=== PATIENT | male | born 1960 | race Caucasian/White ===

== ENCOUNTER 2023-05-24 12:13 | Inpatient (IN) ==
[2023-05-24] MEDS ORDERED: ACETAMINOPHEN 1,000 MG/100 ML VIAL IV STA (12:59)
[2023-05-24] MEDS ORDERED: ONDANSETRON INJ 2 MG/ML 2 ML VIAL IV STA (12:59)
[2023-05-24] MEDS ORDERED: SODIUM CHLORIDE 0.9% 500 ML IV SCH (13:00)
--- NOTE | 2023-05-24 13:14 | Emergency Department Note ---
Impression & Plan Acute bacterial prostatitis, Severe sepsis, Elevated lactic acid level, Elevated troponin ED Provider Note Name: PRANAY GARDNER Age: 63 Sex: Male Arrives Via: Walk-In Informant: Patient, daughter ED Provider: Ruben Virk MD Chief Complaint: Illness Impression: As per impression above Medical Decision Makin-year-old relatively healthy male arrives for evaluation of worsening weakness and fevers. Patient had a prostate biopsy about 5 days ago started having fevers a few days ago and has been vomiting over the last day. He is ill on arrival and appears septic. Septic work-up initiated with blood cultures lactic acid followed by IV cefepime for presumed prostatitis. He was given 30 mL/kg IV fluids with improvement in his heart rate and patient much more comfortable. He did receive some IV pain medications as he notes some diffuse body aches. Laboratory work-up is remarkable for an elevated lactic acid, elevated white count, elevated procalcitonin and urinalysis is consistent with infection. He does not have any peritonitis on examination. Patient furthermore does have an elevated troponin. EKG is fortunately unremarkable. I suspect this is type II NSTEMI secondary to severe sepsis. Would hold off on anticoagulation given likely not acute coronary occlusion. I reviewed the case with hospitalist who will evaluate him for further management. Triage/Nursing Notes reviewed by Me External Chart Review by me: I reviewed urology visit as an outpatient from a few days ago and received Rocephin at that time Differential:Prostatitis, prostate abscess, intra-abdominal abscess, appendicitis, sepsis, bacteremia, intra-abdominal infection, tickborne illness, pneumonia, UTI, pyelonephritis, many other pathologies considered Vital Signs: reviewed and remarkable for tachycardic Interventions: Normal saline bolus 2.5 L IV initially followed by 500 mL IV. Cefepime 2 g IV, acetaminophen 1 g IV, Dilaudid IV, Zofran IV Labs:ED labs Reviewed by me and remarkable for elevated white blood cell count, elevated troponin, elevated procalcitonin, elevated troponin Imagin view chest x-ray as per my informal interpretation reveals no pneumonia, infiltrate, enlarged cardiac border or pleural effusion EKG:As per my interpretation. Indication sepsis with elevated troponin. Sinus tachycardia at 105 bpm QTc of 438. There is no ectopy nor ischemia. When compared to EKG of December 16, 2020 there is no significant change Cardiac/Tele Monitoring: Cardiac Monitoring: An Order was placed for continuous cardiac monitoring. The monitor shows a rate of 105 with a sinus tach rhythm. Consults: [facility] patient [facility] for further evaluation. I discussed case with Dr. Catalan of urology to make him aware of case and he will follow along Plan: Disposition:Hospitalization. Condition: Good History of Present Illness: 63-year-old gentleman arrives for evaluation of not feeling well. Patient had a prostate biopsy 5 days ago. Over the last 3 to 4 days rapidly worsening fevers, chills, weakness. He notes body aches. Increasing nausea and vomiting. Unable to keep any meds down for the last 2 days. He did get a Rocephin shot a few days ago in the urologist office as there is concern of prostatitis. Notes he feels like he does not urinate fully but he is also not been drinking anything for the last few days. Denies any abdominal pain but is having some pelvic pressure. Denies any chest pain, shortness of breath, headache, neck pain, syncope or other concerning signs or symptoms. Denies any history of significant infectious issues. Previous surgeries including inguinal hernia repair no intra-abdominal surgeries. Currently prescribed Keflex which she has not been able to take in at least a day. Past Medical History:Hypertension, abnormal prostate biopsy Home Medications:See Below Allergies:Bee and pollen Vitals:Blood Pressure: 147/80, Pulse 111, RR 16, T 37.1C, O2 100% on RA Physical Exam: GENERAL: Patient is unwell/dehydrated appearing and in minimal distress. Flushed RESPIRATORY: No dyspnea. Clear to auscultation and equal bilaterally. CARDIOVASCULAR: tachy.No murmur appreciated. GASTROINTESTINAL: Abdomen soft, non-tender, no peritonitis. BACK: No midline tenderness, no CVA tenderness EXTREMITIES: Normal motion all extremities, no cyanosis, no edema. NEUROLOGIC: Alert and oriented. No focal neurologic deficits appreciated SKIN: No rash, no jaundice, Flushed dry skin PSYCH: Appropriate GCS: 15 ED Course: Multiple repeat evaluations patient throughout the day. Gradually improving and appears stable 3:15pm: Severe sepsis repeat evaluation. I personally evaluated patient multiple times but specifically at 3:15 PM following fluid resuscitation. Patient is significantly improved he is breathing comfortably and vitals are stable. (BP135/70, p 90, R 18, O2 96% RA). Patient is mentating well has a soft nontender abdomen and has good cap refill. Critical Care: I have personally spent 45 minutes of critical care time in the direct management of this patient. Severe sepsis requiring resuscitation secondary to prostatitis. This was a life/limb threatening event. This 45 minutes is in excess of all separately billable procedures. Ruben Virk MD Past Med/Surg History Medical History (Updated 05/24/23 @ 18:33 by Ruben Virk MD) Insomnia Chronic back pain Alcohol use disorder Orchalgia Hypertension Surgical History H/O inguinal hernia repair Hx of tonsillectomy History of lumbar laminectomy S/P hernia repair Family History Father Heart disease Diabetes Hypertension Social History Smoking Status: Former smoker Tobacco Type: Cigarettes Hx Alcohol Use: Yes Preferred Language: Austrian marital status: current occupational status: employed Feels Safe at Home: Yes Allergies Allergies Allergy/AdvReac Type Severity Reaction Status Date / Time bee pollen Allergy Intermediate itchy Unverified 05/24/23 14:29 pollen extracts Allergy Intermediate Hives Unverified 05/24/23 14:29 Home Meds Home Medications Medication Instructions Recorded Confirmed amitriptyline 10 mg tablet 30 mg PO HS 04/07/19 05/24/23 hydrochlorothiazide 25 mg tablet 25 mg PO QAM 04/07/19 05/24/23 gabapentin 300 mg capsule 300 mg PO TID 12/16/20 05/24/23 (Neurontin) multivitamin 1 tab PO QAM 12/16/20 05/24/23 omega-3 fatty acids 1,000 mg 1,000 mg PO Q3D 05/24/23 05/24/23 capsule Previous Rx's Medication Instructions Recorded tadalafil 10 mg tablet 10 mg PO DAILY PRN sexual activity 04/25/23 #30 tabs tamsulosin 0.4 mg capsule 0.4 mg PO DAILY #30 caps 05/20/23 cephalexin 500 mg capsule 500 mg PO BID 7 days #14 caps 05/23/23 sulfamethoxazole 800 1 tab PO BID 5 days #10 tabs 05/23/23 mg-trimethoprim 160 mg tablet (Bactrim DS) Results & Data (ED) Vital Signs Vital Signs - 24 hr 05/24/23 12:13 05/24/23 13:07 05/24/23 13:27 Temperature 37.1 C Temperature Source Temporal Artery Scan Pulse Rate 111 H 103 H Pulse Rate [Bilateral] Respiratory Rate 16 Respiratory Depth Blood Pressure 147/80 H Blood Pressure [Right Arm] Blood Pressure Mean 102 Blood Pressure Mean [Right Arm] Pulse Oximetry 100 100 Oxygen Delivery Method Room Air Sepsis Recent Fever Within 48 Hours No Sepsis New/Unexplained Change in Mental Status N/A Sepsis Action Taken by Nursing No Action Required 05/24/23 13:44 05/24/23 14:00 05/24/23 14:15 Temperature 37.0 C Temperature Source Oral Pulse Rate Pulse Rate [Bilateral] 95 H 100 H 94 H Respiratory Rate 16 18 17 Respiratory Depth Blood Pressure Blood Pressure [Right Arm] 146/84 H 148/77 H 146/87 H Blood Pressure Mean Blood Pressure Mean [Right Arm] 104 100 106 Pulse Oximetry 98 95 95 Oxygen Delivery Method Room Air Room Air Room Air Sepsis Recent Fever Within 48 Hours Sepsis New/Unexplained Change in Mental Status Sepsis Action Taken by Nursing 05/24/23 14:30 05/24/23 14:45 05/24/23 15:00 Temperature Temperature Source Pulse Rate Pulse Rate [Bilateral] 105 H 98 H 100 H Respiratory Rate 22 18 15 Respiratory Depth Normal Normal Blood Pressure Blood Pressure [Right Arm] 167/94 H 173/90 H 178/90 H Blood Pressure Mean Blood Pressure Mean [Right Arm] 118 117 119 Pulse Oximetry 94 94 95 Oxygen Delivery Method Room Air Room Air Room Air Sepsis Recent Fever Within 48 Hours Sepsis New/Unexplained Change in Mental Status Sepsis Action Taken by Nursing 05/24/23 15:15 05/24/23 15:30 05/24/23 15:45 Temperature Temperature Source Pulse Rate Pulse Rate [Bilateral] 100 H 96 H 99 H Respiratory Rate 15 16 Respiratory Depth Normal Blood Pressure Blood Pressure [Right Arm] 152/100 H 156/95 H Blood Pressure Mean Blood Pressure Mean [Right Arm] 117 115 Pulse Oximetry 96 93 Oxygen Delivery Method Room Air Room Air Sepsis Recent Fever Within 48 Hours Sepsis New/Unexplained Change in Mental Status Sepsis Action Taken by Nursing Laboratory Data 05/24/23 13:26 05/24/23 14:44 Lab Results 05/24/23 05/24/23 05/24/23 Range/Units 13:26 14:30 14:44 WBC 14.27 H (4.8-10.8) K/ul RBC 5.01 (4.70-6.10) M/uL Hgb 15.9 (14.0-18.0) g/dl Hct 44.3 (42.0-52.0) % MCV 88.4 (80.0-100.0) fL MCH 31.7 (25.0-34.0) pg MCHC 35.9 (32.0-36.0) g/dL RDW Std Deviation 38.0 (36.4-46.3) fL RDW Coeff of Jagdeep 11.8 (11.5-14.5) % Plt Count 141 (130-400) K/uL MPV 11.8 (9.4-12.4) fL Immature Gran % (Auto) 0.6 % Neut % (Auto) 91.4 % Lymph % (Auto) 2.9 % Butts % (Auto) 4.6 % Eos % (Auto) 0.3 % Baso % (Auto) 0.2 % Neut # (Auto) 13.06 H (1.40-6.50) K/uL Lymph # (Auto) 0.41 L (1.20-3.40) K/uL Butts # (Auto) 0.65 H (0.11-0.59) K/uL Eos # (Auto) 0.04 (0.00-0.50) K/uL Baso # (Auto) 0.03 (0.00-0.20) K/uL Immature Gran # (Auto) 0.08 (0.01-0.20) K/uL Toxic Vacuolation 2+ Polychromasia 1+ Sodium TNP 131 L Potassium TNP 3.2 L Chloride 97 L (98-107) mmol/L Carbon Dioxide 21 (21-32) mmol/L Anion Gap TNP BUN 15 (6-23) mg/dl Creatinine 1.02 (0.6-1.4) mg/dl Est Cr Clr Drug Dosing 83.8 ml/min Est GFR ( Amer) 90.2 ml/min Est GFR (Non-Af Amer) 77.9 ml/min BUN/Creatinine Ratio 14.7 (10-20) Glucose 128 H (70-99(Fasting)) mg/dl Lactate 2.9 H* (0.4-2.0) mmol/L Calcium 8.9 (8.6-10.3) mg/dl Magnesium TNP 1.7 Total Bilirubin 1.2 H (0.2-1.0) mg/dl Direct Bilirubin TNP 0.3 H AST TNP 28 ALT 19 (7-52) U/L Alkaline Phosphatase 77 (34-104) U/L Troponin I High Sens 87.1 H* (0-20) pg/ml Total Protein 7.7 (6.0-8.3) gm/dl Albumin 4.0 (3.4-5.0) gm/dl Procalcitonin Cancelled 11.15 H Urine Color Dark Yellow Urine Appearance Turbid A (Clear) Urine pH 8.0 H (4.5-7.5) Ur Specific [place] 1.021 (1.000-1.030) Urine Protein 2+ H (Negative) Urine Glucose (UA) Negative (Negative) Urine Ketones 1+ H (Negative) Urine Blood 3+ H (Negative) Urine Nitrite Negative (Negative) Urine Bilirubin Negative (Negative) Urine Urobilinogen Negative (Negative) Ur Leukocyte Esterase 3+ H (Negative) Urine WBC (Auto) >30 H (0-5) /hpf Urine RBC (Auto) 10-30 H (0-4) /hpf U Hyaline Cast (Auto) 1-5 (0-5) /lpf U Epithel Cells (Auto) 0-5 (0-5) /lpf Urine Bacteria (Auto) Negative (Negative) Urine Yeast Not Reportable Urine Sperm Present A (None Prsent) 05/24/23 Range/Units 15:45 WBC (4.8-10.8) K/ul RBC (4.70-6.10) M/uL Hgb (14.0-18.0) g/dl Hct (42.0-52.0) % MCV (80.0-100.0) fL MCH (25.0-34.0) pg MCHC (32.0-36.0) g/dL RDW Std Deviation (36.4-46.3) fL RDW Coeff of Jagdeep (11.5-14.5) % Plt Count (130-400) K/uL MPV (9.4-12.4) fL Immature Gran % (Auto) % Neut % (Auto) % Lymph % (Auto) % Butts % (Auto) % Eos % (Auto) % Baso % (Auto) % Neut # (Auto) (1.40-6.50) K/uL Lymph # (Auto) (1.20-3.40) K/uL Butts # (Auto) (0.11-0.59) K/uL Eos # (Auto) (0.00-0.50) K/uL Baso # (Auto) (0.00-0.20) K/uL Immature Gran # (Auto) (0.01-0.20) K/uL Toxic Vacuolation Polychromasia Sodium Potassium Chloride (98-107) mmol/L Carbon Dioxide (21-32) mmol/L Anion Gap BUN (6-23) mg/dl Creatinine (0.6-1.4) mg/dl Est Cr Clr Drug Dosing ml/min Est GFR ( Amer) ml/min Est GFR (Non-Af Amer) ml/min BUN/Creatinine Ratio (10-20) Glucose (70-99(Fasting)) mg/dl Lactate 1.4 (0.4-2.0) mmol/L Calcium (8.6-10.3) mg/dl Magnesium Total Bilirubin (0.2-1.0) mg/dl Direct Bilirubin AST ALT (7-52) U/L Alkaline Phosphatase (34-104) U/L Troponin I High Sens 85.3 H* (0-20) pg/ml Total Protein (6.0-8.3) gm/dl Albumin (3.4-5.0) gm/dl Procalcitonin Urine Color Urine Appearance (Clear) Urine pH (4.5-7.5) Ur Specific [place] (1.000-1.030) Urine Protein (Negative) Urine Glucose (UA) (Negative) Urine Ketones (Negative) Urine Blood (Negative) Urine Nitrite (Negative) Urine Bilirubin (Negative) Urine Urobilinogen (Negative) Ur Leukocyte Esterase (Negative) Urine WBC (Auto) (0-5) /hpf Urine RBC (Auto) (0-4) /hpf U Hyaline Cast (Auto) (0-5) /lpf U Epithel Cells (Auto) (0-5) /lpf Urine Bacteria (Auto) (Negative) Urine Yeast Urine Sperm (None Prsent) Administered Medications Enoxaparin Sodium (Enoxaparin Inj 40 Mg/0.4 Ml Syr) 40 mg SQ Q24H NICKI Stop: 06/23/23 17:59 Last Admin: 05/24/23 18:05 Dose: 40 mg Documented By: JAMAR Potassium Chloride 40 meq/ (Sodium Chloride) 1,020 mls @ 125 mls/hr IV .Q8H10M NICKI Stop: 05/25/23 01:54 EST Last Admin: 05/24/23 18:05 Dose: 125 mls/hr Documented By: JAMAR Tamsulosin HCl (Tamsulosin Hcl 0.4 Mg Cap) 0.4 mg PO DAILY NICKI Stop: 06/23/23 17:59 Last Admin: 05/24/23 17:46 Dose: Not Given Documented By: JAMAR Discontinued Medications Gabapentin (Gabapentin 600 Mg Tab) 1,200 mg PO NOW ONE Stop: 05/24/23 15:37 Last Admin: 05/24/23 17:07 Dose: Not Given Documented By: JAMAR Hydromorphone HCl (Hydromorphone Inj 1 Mg/Ml Syringe) 1 mg IV NOW STA Stop: 05/24/23 15:09 Last Admin: 05/24/23 16:11 Dose: 1 mg Documented By: JAMAR Sodium Chloride (Nss) 500 mls @ 999 mls/hr IV .Q31M NICKI Stop: 05/24/23 13:30 Last Infusion: 05/24/23 15:59 Dose: Infused Documented By: Admin: 05/24/23 13:54 Dose: 999 mls/hr Documented By: JAMAR Sodium Chloride (Nss) 1,000 mls @ 999 mls/hr IV .Q1H1M NICKI Stop: 05/24/23 15:00 Last Infusion: 05/24/23 15:59 Dose: Infused Documented By: Admin: 05/24/23 14:10 Dose: 999 mls/hr Documented By: Infusion: 05/24/23 14:10 Dose: Infused Documented By: Admin: 05/24/23 13:54 Dose: 999 mls/hr Documented By: JAMAR Acetaminophen (Ofirmev) 1,000 mg in 100 mls @ 400 mls/hr IV NOW STA Stop: 05/24/23 13:13 Last Infusion: 05/24/23 14:09 Dose: Infused Documented By: Admin: 05/24/23 13:54 Dose: 400 mls/hr Documented By: JAMAR Cefepime HCl (Maxipime) 2,000 mg in 20 mls @ 5 mls/min IV NOW STA; Protocol Stop: 05/24/23 13:56 Last Admin: 05/24/23 13:59 Dose: 5 mls/min Documented By: JAMAR Sodium Chloride (Nss) 500 mls @ 999 mls/hr IV .Q31M ONE Stop: 05/24/23 14:52 Last Infusion: 05/24/23 16:40 Dose: Infused Documented By: Admin: 05/24/23 15:50 Dose: 999 mls/hr Documented By: JAMAR Promethazine HCl 6.25 mg/ (Sodium Chloride) 50.25 mls @ 201 mls/hr IV NOW STA Stop: 05/24/23 15:42 Last Infusion: 05/24/23 16:40 Dose: Infused Documented By: Admin: 05/24/23 16:12 Dose: 201 mls/hr Documented By: JAMAR Ioversol (Optiray 320 100ml) 93 ml IV ONCE ONE Stop: 05/24/23 16:51 Last Admin: 05/24/23 16:50 Dose: 93 ml Documented By: GONZALEZ Ondansetron HCl (Ondansetron Inj 2 Mg/Ml 2 Ml Vial) 4 mg IV NOW STA Stop: 05/24/23 13:00 Last Admin: 05/24/23 13:53 Dose: 4 mg Documented By: JAMAR Potassium Chloride (Potassium Chloride Crtab 20 Meq Tabcr) 40 meq PO NOW STA Stop: 05/24/23 15:49 Last Admin: 05/24/23 17:08 Dose: Not Given Documented By: JAMAR Imaging Data Radiologist's Impression: Chest X-Ray 05/24/23 12:59 XR chest 1V portable CLINICAL HISTORY: Sepsis TECHNIQUE: Single frontal radiograph of the chest was obtained. Comparison: None available at the time of this dictation. FINDINGS: No lines and tubes are seen. The cardiomediastinal silhouette is normal. The lungs are clear. No evidence of pleural effusion or pneumothorax. IMPRESSION: No acute abnormalities and in particular no radiographic evidence of pneumonia. ACT 112: Negative or not required by law. Electronically signed by: Mike Polo M.D. 05/24/2023 3:48 PM Discharge Plan Visit Data Chief Complaint: Nausea Stated Complaint: EXTREME NAUSEA, REACTION TO MEDS ED Provider: Ruben Virk Discharge Problem: Acute bacterial prostatitis, Severe sepsis, Elevated lactic acid level, Elevated troponin Patient Disposition: Admitted As Inpatient Discharge Instructions Interventions: ED Discharge Assessment Last Done: 05/24/23 17:13
[2023-05-24 13:48] LABS: Hematocrit (blood only) 44.3 % (42.0-52.0); Hemoglobin 15.9 g/dl (14.0-18.0); Mean Corpuscular Hemoglobin 31.7 pg (25.0-34.0); Mean Corpuscular Hgb Conc 35.9 g/dL (32.0-36.0); Mean Corpuscular Volume 88.4 fL (80.0-100.0); Mean Platelet Volume 11.8 fL (9.4-12.4); Platelet Count 141 K/uL (130-400); RDW Coefficient of Variation 11.8 % (11.5-14.5); Red Blood Count 5.01 M/uL (4.70-6.10); White Blood Count 14.27 K/ul (4.8-10.8)
[2023-05-24] MEDS ORDERED: CEFEPIME 2,000 MG/20 ML VIAL IV STA (13:53)
[2023-05-24] MEDS: SODIUM CHLORIDE 0.9% 1,000 ML IV SCH ×2 (13:54→14:10)
[2023-05-24 14:07] LABS: Basophils # (auto) 0.03 K/uL (0.00-0.20); Basophils % (auto) 0.2 %; Eosinophils # (auto) 0.04 K/uL (0.00-0.50); Eosinophils % (auto) 0.3 %; Immature Granulocytes # (auto) 0.08 K/uL (0.01-0.20); Immature Granulocytes % (auto) 0.6 %; Lymphocytes # (auto) 0.41 K/uL (1.20-3.40); Lymphocytes % (auto) 2.9 %; Monocytes # (auto) 0.65 K/uL (0.11-0.59); Monocytes % (auto) 4.6 %; Neutrophils # (auto) 13.06 K/uL (1.40-6.50); Neutrophils % (auto) 91.4 %; Polychromasia 1+; Toxic Vacuolation 2+
[2023-05-24 14:11] LABS: Alanine Aminotransferase 19 U/L (7-52); Alkaline Phosphatase 77 U/L (34-104); BUN Creatinine Ratio 14.7 (10-20); Bilirubin,Total 1.2 mg/dl (0.2-1.0); Blood Urea Nitrogen 15 mg/dl (6-23); Calcium 8.9 mg/dl (8.6-10.3); Carbon Dioxide 21 mmol/L (21-32); Chloride 97 mmol/L (98-107); Creatinine Clr Calc Pharmacy 83.8 ml/min; Est GFR (African American) 90.2 ml/min; Est GFR (Non-African American) 77.9 ml/min; Glucose 128 mg/dl (70-99(Fasting)); Total Protein 7.7 gm/dl (6.0-8.3)
[2023-05-24 14:20] LABS: Troponin I High Sensitivity 87.1 pg/ml (0-20)
[2023-05-24] MEDS ORDERED: SODIUM CHLORIDE 0.9% 500 ML IV ONE (14:22)
--- NOTE | 2023-05-24 15:03 | History & Physical Report ---
Date of Service May 24, 2023 Assessment & Plan (1) Sepsis: (2) Prostatitis: (3) Complicated UTI (urinary tract infection): (4) Hx of prostate biopsy: (5) Chronic back pain: (6) Alcohol use disorder: (7) Insomnia: Plan This is a 63yo M with a PMH of secondary HTN, history of alcohol use disorder, elevated psa s/p prostate biopsy yesterday who presents with nausea and fever x 2 days in setting of recent prostate biopsy and concern for developing prostatitis. Sepsis Prostatitis Complicated UTI Tmax 102 F at home, HR 111, WBC 14k, lactate 2.9 -> 1.4 after IV fluids Received adequate IV fluid resuscitation in ED, continue empiric Cefepime UA abnormal, follow urine and blood cultures CT abd/pelvis ordered given recent biopsy, suprapubic discomfort H/o recent prostate biopsy Elevated PSA in Mar, following with Dr. Worrell, s/p core needle biopsy on 05/20 with path resulted showing prostate adenocarcinoma grade group 2 Routine urology consult Alcohol use disorder Endorses 4+ beers daily, last drink 2 days ago 2/2 N/V Appears hypertensive, flushed, restless in ED - AWSS protocol with gabapentin and PRN IV ativan HTN Holding hctz given hypoNa, hypokalemia and recent GI losses Monitor for improvement on etoh withdrawal protocol, may require additional antihypertensives Hypokalemia K 3.2 initially 2/2 GI losses Replaced. Monitor with daily BMP Chronic back pain H/o laminectomy, on gabapentin - hold home dose while receiving gabapentin withdrawal protocol as above Insomnia Amitriptyline 30mg HS DVT Ppx: SQ lovenox Code status: FULL PCP: Dariela Dispo: Admitted to PCU Patient seen in collaboration with Dr. Rodriguez. Please see addendum. History of Present Illness Chief Complaint: dysuria Primary Care Provider: Jas Lyle MD This is a 63yo M with a PMH of secondary HTN, history of alcohol use disorder, elevated psa s/p prostate biopsy yesterday who presents with nausea and fever x 2 days. Follows with [facility] urology for dysuria, orchialgia and was found to have elevated psa of 31 in Mar and underwent prostate biopsy with Dr. Worrell on 05/20. States he completed abx course as prescribed around time of biopsy and felt fine until 2 days ago when he developed nausea, vomiting and fever. Was seen in urology office on 05/23 and received a shot of Rocephin for concern ? p rostatitis. Was prescribed Keflex and Bactrim by urology but do to persistent N/V has not able to take them. Was vomiting overnight and had a Tmax 102 so presented to ED for further evaluation. Endorsing chills, sweats, nausea and feeling restless. Increased urinary urgency but feels like he cannot fully empty bladder with some resulting pelvic discomfort. No dysuria. No headache, lightheadedness, CP, SOB, abdominal pain, diarrhea or constipation. Reduced PO intake over past 2 days and has not had any alcohol in 2 says. Typically endorses 4 beers/day. Allergies Allergy/AdvReac Type Severity Reaction Status Date / Time bee pollen Allergy Intermediate itchy Unverified 05/24/23 14:29 pollen extracts Allergy Intermediate Hives Unverified 05/24/23 14:29 Home Medications Medication Instructions Recorded Confirmed Type amitriptyline 10 mg tablet 30 mg PO HS 04/07/19 05/24/23 History hydrochlorothiazide 25 mg tablet 25 mg PO QAM 04/07/19 05/24/23 History gabapentin 300 mg capsule 300 mg PO TID 12/16/20 05/24/23 History (Neurontin) multivitamin 1 tab PO QAM 12/16/20 05/24/23 History tadalafil 10 mg tablet 10 mg PO DAILY PRN sexual activity 04/25/23 05/24/23 Rx #30 tabs tamsulosin 0.4 mg capsule 0.4 mg PO DAILY #30 caps 05/20/23 05/24/23 Rx cephalexin 500 mg capsule 500 mg PO BID 7 days #14 caps 05/23/23 05/24/23 Rx sulfamethoxazole 800 1 tab PO BID 5 days #10 tabs 05/23/23 05/24/23 Rx mg-trimethoprim 160 mg tablet (Bactrim DS) omega-3 fatty acids 1,000 mg 1,000 mg PO Q3D 05/24/23 05/24/23 History capsule Past Med/Surg History Medical History (Updated 05/24/23 @ 16:00 by Rosette Chance PA-C) Insomnia Chronic back pain Alcohol use disorder Orchalgia Hypertension Surgical History H/O inguinal hernia repair Hx of tonsillectomy History of lumbar laminectomy S/P hernia repair Family History Father Heart disease Diabetes Hypertension Social History Smoking Status: Former smoker Tobacco Type: Cigarettes Hx Alcohol Use: Yes Preferred Language: Armenian marital status: current occupational status: employed Feels Safe at Home: Yes Review of Systems Review of Systems: At least ten systems reviewed and negative except as noted in the HPI. Physical Exam Physical Exam: General Appearance: WD/WN, vitals as above, NAD, sitting up in bed, in acute distress, restless, flushed Head: normocephalic, atraumatic Eyes: normal inspection, PERRL, conjunctivae normal, anicteric sclerae ENT: external ear and nose normal, oropharynx with dry mucous membranes Neck: normal visual inspection, trachea midline, no thyromegaly Respiratory: normal respiratory effort, lungs clear to auscultation, no wheeze, rales, rhonchi. No accessory muscle use Cardiovascular: tachycardic rate, regular rhythm, no murmur, normal peripheral pulses, no BLE edema. Vessels: no JVD Chest: normal inspection of chest Abdomen/GI: normal bowel sounds, soft, nontender, no hepatosplenomegaly : Suprapubic TTP L>R, no CVA TTP Extremities/Musculoskeletal: no cyanosis or clubbing, extremities motor strength 5/5 Neurologic: PERRL, EOMI, accommodation nl, no face palsy, no dysarthria, CN's II-XI intact bilaterally and moves all extremities Psychiatric: A+Ox3 Skin: no rashes, normal color, warm/dry Results & Data Results & Data Vital Signs (Past 12 Hours) Vital Signs Temp Pulse Pulse Resp BP BP Pulse Ox 05/24/23 14:00 100 H 18 148/77 H 95 05/24/23 13:44 37.0 C 95 H 16 146/84 H 98 05/24/23 13:27 103 H 05/24/23 13:07 100 05/24/23 12:13 37.1 C 111 H 16 147/80 H 100 O2 Del Method 05/24/23 14:00 Room Air 05/24/23 13:44 Room Air 05/24/23 13:27 05/24/23 13:07 Room Air 05/24/23 12:13 Laboratory Results Short CBC 05/24/23 Range/Units 13:26 WBC 14.27 H (4.8-10.8) K/ul Hgb 15.9 (14.0-18.0) g/dl Hct 44.3 (42.0-52.0) % Plt Count 141 (130-400) K/uL BMP 05/24/23 13:26 Sodium TNP Potassium TNP Chloride 97 L Carbon Dioxide 21 BUN 15 Creatinine 1.02 Glucose 128 H Calcium 8.9 Liver Function 05/24/23 Range/Units 13:26 Total Bilirubin 1.2 H (0.2-1.0) mg/dl Direct Bilirubin TNP AST TNP ALT 19 (7-52) U/L Alkaline Phosphatase 77 (34-104) U/L Albumin 4.0 (3.4-5.0) gm/dl Diagnostic Findings Chest X-Ray 05/24/23 12:59 XR chest 1V portable CLINICAL HISTORY: Sepsis TECHNIQUE: Single frontal radiograph of the chest was obtained. Comparison: None available at the time of this dictation. FINDINGS: No lines and tubes are seen. The cardiomediastinal silhouette is normal. The lungs are clear. No evidence of pleural effusion or pneumothorax. IMPRESSION: No acute abnormalities and in particular no radiographic evidence of pneumonia. ACT 112: Negative or not required by law. Electronically signed by: Mike Polo M.D. 05/24/2023 3:48 PM ECG Additional Comments: EKG reviewed: Sinus tachycardia Incomplete right bundle branch block, no significant change from previous Supervising Physician Co-Signing Physician Notes 63-year-old male with PMH of HTN, alcohol use disorder, PSA status post recent prostate biopsy complicated with prostatitis not able to take p.o. antibiotic due to associated nausea and vomiting secondary to infection presented to the ED and found to be in severe sepsis POA secondary to prostatitis and complicated UTI. Patient also drinks 3-4 beers daily, last drink 2 days ago which was only 1 beer. IV cefepime, nausea control, CTAP with IV contrast, urology consult. Follow cultures. JOEL S protocol Continue with home medication for hypertension and chronic back pain. Monitor replete electrolytes. Hyponatremia secondary to poor appetite/nausea and vomiting lately. Expect to improve with improving p.o. intake. Lactic acidosis resolved. IV fluids if not able to take p.o. Demand ischemia likely secondary to acute illness, troponin flat trended around 85, patient with no chest pain, telemetry monitoring. On exam: GENERAL: Alert and oriented x3. NAD, on RA. Appears ill HEENT: No pallor, no icterus. Pupils equal, round and reactive to light. Oral mucosa moist. NECK: No JVD, no neck masses. HEART: S1 and S2 heard. Regular rate and rhythm. Tachycardia. No murmur, no gallop. RESPIRATORY SYSTEM: Normal AP diameter. No accessory muscle use. No wheezing, no crackles. ABDOMEN: Soft, bowel sounds present, nontender, no distention. CENTRAL NERVOUS SYSTEM: No facial droop. Speech is clear. Obeys simple commands. Moves extremities. EXTREMITIES: No edema, no erythema seen. I have seen and examined the patient and have discussed the case with the provider above. I agree with the assessment and plan as stated.
[2023-05-24] MEDS ORDERED: HYDROmorphone INJ 1 MG/ML SYRINGE IV STA (15:08)
[2023-05-24 15:21] LABS: Appearance Urine Turbid (Clear); Bacteria Urine Automated Negative (Negative); Bilirubin Urine Negative (Negative); Blood Urine 3+ (Negative); Color Urine Dark Yellow; Epithelial Cell Urine Auto 0-5 /lpf (0-5); Glucose Urine UA Negative (Negative); Ketones Urine 1+ (Negative); Leukocyte Esterase Urine 3+ (Negative); Nitrite Urine Negative (Negative); Specific Gravity Urine 1.021 (1.000-1.030); Urobilinogen Urine Negative (Negative); WBC Urine Automated >30 /hpf (0-5)
[2023-05-24 15:22] LABS: Protein Urine 2+ (Negative)
[2023-05-24 15:22] LABS: Bilirubin Direct 0.3 mg/dl (0-0.2); Magnesium 1.7 mg/dl (1.7-2.4); Potassium 3.2 mmol/L (3.5-5.1)
[2023-05-24] MEDS ORDERED: PROMETHAZINE HCL 6.25 MG in SODIUM CHLORIDE 0.9% 50 ML IV STA (15:28)
[2023-05-24] MEDS ORDERED: GABAPENTIN 1200MG ALCOHOL WITHDRAWAL LOAD PO STA (15:36)
[2023-05-24] MEDS ORDERED: GABAPENTIN 600 MG TAB PO ONE (15:36)
[2023-05-24] MEDS ORDERED: LORazepam 2 MG/1 ML VIAL IV PRN (15:36)
[2023-05-24] MEDS ORDERED: Ativan IV Alcohol Withdrawal--Active Protocol IV PRN (15:36)
[2023-05-24 15:37] LABS: Sperm Urine Present (None Prsent)
[2023-05-24] MEDS ORDERED: POTASSIUM CHLORIDE CRTAB 20 MEQ TABCR PO STA (15:48)
--- NOTE | 2023-05-24 15:50 | XRay Report ---
XR chest 1V portable CLINICAL HISTORY: Sepsis TECHNIQUE: Single frontal radiograph of the chest was obtained. Comparison: None available at the time of this dictation. FINDINGS: No lines and tubes are seen. The cardiomediastinal silhouette is normal. The lungs are clear. No evid ence of pleural effusion or pneumothorax. IMPRESSION: No acute abnormalities and in particular no radiographic evidence of pneumonia. ACT 112: Negative or not required by law. Electronically signed by: Mike Polo M.D. 05/24/2023 3:48 PM
[2023-05-24] MEDS ORDERED: OPTIRAY 320 100ml IV ONE (16:50)
[2023-05-24] MEDS ORDERED: POLYETHYLENE (MIRALAX) 17 GM PACK PO PRN (17:13)
[2023-05-24] MEDS ORDERED: POTASSIUM CHLORIDE 40 MEQ in SODIUM CHLORIDE 0.9% 1,000 ML IV SCH (17:45)
[2023-05-24] MEDS: TAMSULOSIN HCL 0.4 MG CAP PO SCH (17:46)
[2023-05-24] MEDS: ENOXAPARIN INJ 40 MG/0.4 ML SYR SQ SCH (18:05)
[2023-05-24 18:20] LABS: Influenza A virus by PCR Negative (Neg); Influenza B virus by PCR Negative (Neg); RSV by PCR Negative (Neg); SARS CoV2 RNA(COVID-19) Ceph NEGATIVE (Negative)
--- NOTE | 2023-05-24 19:40 | CT Scan Report ---
CT abd pelvis IV con only CLINICAL HISTORY: sepsis 2/2 prostatitis, recent prostate bx TECHNIQUE: Helical axial images of the abdomen and pelvis were obtained and displayed. Automated dose lowering techniques and/or adjustment according to patient size were utilized for this exam. This e xam was performed with intravenous contrast. CT DOSE: 1100.05 mGy.cm COMPARISON: None available at the time of this dictation. FINDINGS: Lower chest: Bibasilar atelectasis versus scarring is seen. Liver: Unremarkable. No focal lesions are seen. Gallbladder and biliary tree: No calcified gallstones. Normal caliber wall. No intra- or extrahepatic biliary ductal dilation. Pancreas: Unremarkable, no focal lesions. Spleen: Unremarkable. Adrenals: Unremarkable. Kidneys and ureters: Unremarkable. Bladder: Diffuse homogeneous wall thickening is seen. Reproductive organs: Calcifications are noted in the prostate. There is no evidence of prostatic absc ess. Prostate is enlarged measuring 55 mm in diameter. Bowel: The appendix is normal. Lymph nodes Retroperitoneal: Unremarkable. Pelvic: Unremarkable. Mesenteric: Unremarkable. Peritoneum: Normal. Vessels: Unremarkable. Abdominal wall: Left fat containing inguinal hernia. Bones: Minimal degenerative changes are seen. IMPRESSION: Prostatomegaly and calcification is seen with mild edema which may represent prostatitis without evid ence of prosthetic abscess. ACT 112: Negative or not required by law. Electronically signed by: Mike Polo M.D. 05/24/2023 7:38 PM
[2023-05-24] MEDS: AMITRIPTYLINE HCL 10 MG TAB PO SCH (21:51)
[2023-05-24] MEDS: CEFEPIME 2,000 MG in SYRINGE 0 ML IV SCH (21:52)
[2023-05-24] MEDS: GABAPENTIN 600 MG TAB PO SCH (23:10)
[2023-05-25] MEDS: ONDANSETRON INJ 2 MG/ML 2 ML VIAL IV PRN (03:52)
[2023-05-25 04:10] LABS: Hematocrit (blood only) 39.2 % (42.0-52.0); Mean Corpuscular Hgb Conc 35.7 g/dL (32.0-36.0); Mean Corpuscular Volume 89.7 fL (80.0-100.0); Mean Platelet Volume 12.2 fL (9.4-12.4); Platelet Count 102 K/uL (130-400); RDW Coefficient of Variation 12.2 % (11.5-14.5); RDW Standard Deviation 40.2 fL (36.4-46.3); Red Blood Count 4.37 M/uL (4.70-6.10); White Blood Count 9.11 K/ul (4.8-10.8)
[2023-05-25 04:29] LABS: Albumin Globulin Ratio 1.1 (0.9-2); Albumin Level 3.3 gm/dl (3.4-5.0); BUN Creatinine Ratio 16.4 (10-20); Bilirubin,Total 0.8 mg/dl (0.2-1.0); Calcium 7.6 mg/dl (8.6-10.3); Creatinine Clr Calc Pharmacy 117.1 ml/min; Est GFR (African American) 114.4 ml/min; Est GFR (Non-African American) 98.7 ml/min; Globulin 2.9 gm/dl (2.5-4.0); Potassium 3.7 mmol/L (3.5-5.1); Total Protein 6.2 gm/dl (6.0-8.3)
[2023-05-25] MEDS: ACETAMINOPHEN 325 MG TAB PO PRN ×2 (05:32→19:46)
[2023-05-25] MEDS: CEFEPIME 2,000 MG in SYRINGE 0 ML IV SCH ×3 (05:32→21:31)
[2023-05-25] MEDS: GABAPENTIN 600 MG TAB PO SCH ×3 (05:33→19:47)
--- NOTE | 2023-05-25 08:23 | Urology Consultation ---
Date of Consultation May 25, 2023 Assessment & Plan (1) Complicated UTI (urinary tract infection): (2) Severe sepsis: Plan 63-year-old male who is status post prostate needle biopsy on 05/20/2023 was admitted to the hospital with suspected sepsis. No acute urologic intervention necessary Urine cultures growing E. coli. Would not be surprised if blood cultures grow E. coli as well. Continue cefepime and narrow down once cultures are finalized. Recommend total course of 14 days of antibiotics Urology to follow peripherally Did not discuss pathology results with patient as I will leave this to Dr. Worrell to do as an outpatient History of Present Illness Attending Physician: Gill Luke MD History of Present Illness 63-year-old male admitted for suspected sepsis following a prostate needle biopsy. He is status post prostate needle biopsy by Dr. Worrell in clinic on 05/20/2023. He was admitted to the hospital 05/24/2023. He has not had any fevers while admitted. He did have 1 reading of tachycardia with a heart rate of 105. He has been mildly hypertensive. Labs showed initial leukocytosis of 14 which is down trended to 9.1 this morning. Hyponatremic with a sodium of 131. Creatinine 0.73 today. Urinalysis was positive for leukocyte Estrace, WBCs and RBCs. Blood and urine cultures are pending but prelim urine culture from 06/19/2023 is growing out E. coli. A CT scan of the abdomen pelvis was ordered which I independently reviewed which does not show any acute abnormalities. He was started on cefepime. Independently reviewed pathology which did show numerous cores of [place] 3+4 equal 7, 1 core of [place] 4+3 equal 7 and 2 cores of [place] 3+5 = 8 prostate cancer. Allergies Allergy/AdvReac Type Severity Reaction Status Date / Time bee pollen Allergy Intermediate itchy Unverified 05/24/23 14:29 pollen extracts Allergy Intermediate Hives Unverified 05/24/23 14:29 Home Medications Medication Instructions Recorded Confirmed Type amitriptyline 10 mg tablet 30 mg PO HS 04/07/19 05/24/23 History hydrochlorothiazide 25 mg tablet 25 mg PO QAM 04/07/19 05/24/23 History gabapentin 300 mg capsule 300 mg PO TID 12/16/20 05/24/23 History (Neurontin) multivitamin 1 tab PO QAM 12/16/20 05/24/23 History tadalafil 10 mg tablet 10 mg PO DAILY PRN sexual activity 04/25/23 05/24/23 Rx #30 tabs tamsulosin 0.4 mg capsule 0.4 mg PO DAILY #30 caps 05/20/23 05/24/23 Rx cephalexin 500 mg capsule 500 mg PO BID 7 days #14 caps 05/23/23 05/24/23 Rx sulfamethoxazole 800 1 tab PO BID 5 days #10 tabs 05/23/23 05/24/23 Rx mg-trimethoprim 160 mg tablet (Bactrim DS) omega-3 fatty acids 1,000 mg 1,000 mg PO Q3D 05/24/23 05/24/23 History capsule Patient History Medical History (Updated 05/24/23 @ 18:33 by Ruben Virk MD) Insomnia Chronic back pain Alcohol use disorder Orchalgia Hypertension Surgical History H/O inguinal hernia repair Hx of tonsillectomy History of lumbar laminectomy S/P hernia repair Family History Father Heart disease Diabetes Hypertension Social History Smoking Status: Never smoker Tobacco Type: Cigarettes Do You Dip or Chew Tobacco: No; Hx Alcohol Use: No Hx Substance Use: Yes Preferred Language: Japanese Communication Ability: Effective Manager Agency Required: No Beliefs That Will Affect Care: None marital status: Current Living Situation: Spouse current occupational status: employed Other Information That Helps Us Care for You: No Feels Safe at Home: Yes Safety Concerns: Feels Safe At This Time Assistive Devices: None Review of Systems Review of Systems: 14 point review of systems negative outs naa of what is listed above in HPI Physical Exam Physical Exam: General: Alert and oriented, no acute distress HEENT: Normocephalic, mucous membranes moist Pulmonary: Nonlabored respirations Abdomen: Nondistended Extremities: Moves all 4 spontaneously Neuro: No gross deficits Skin: Warm, dry, no rashes noted Results & Data Vital Signs (Past 12 Hours) Vital Signs Temp Pulse Pulse Pulse Resp BP BP 05/25/23 06:34 36.6 C 81 14 160/103 H 05/25/23 04:32 82 20 154/100 H 05/25/23 02:00 149/94 H 05/25/23 02:00 87 16 05/25/23 01:05 EST 90 16 151/93 H 05/25/23 01:01 EST 105 H 16 05/25/23 01:05 EDT 92 H 20 152/93 H 05/25/23 00:00 91 H 12 164/100 H 05/25/23 00:00 91 H 16 164/100 H 05/24/23 23:53 37.5 C 97 H 16 134/80 05/24/23 23:00 90 14 134/81 05/24/23 23:00 85 18 134/81 05/24/23 22:00 88 19 146/100 H Pulse Ox O2 Del Method 05/25/23 06:34 97 Room Air 05/25/23 04:32 98 Room Air 05/25/23 02:00 05/25/23 02:00 96 05/25/23 01:05 EST 96 05/25/23 01:01 EST 05/25/23 01:05 EDT 98 Room Air 05/25/23 00:00 96 05/25/23 00:00 96 Room Air 05/24/23 23:53 97 Room Air 05/24/23 23:00 97 05/24/23 23:00 97 Room Air 05/24/23 22:00 95 Room Air PG Care Time/CCT Total # of Minutes Spent Total Time Spent with Patient: Total time spent is greater than 50% in coordination of care (as documented) at patient's floor/unit and/or counseling patient: Coding Level of Care Code 94984 IN/OBS CONSULT LVL 3,45M Diagnoses Complicated UTI (urinary tract infection) N39.0 Severe sepsis A41.9; R65.20
[2023-05-25] MEDS: MULTIVITAMIN TAB PO SCH (08:35)
[2023-05-25] MEDS: TAMSULOSIN HCL 0.4 MG CAP PO SCH (08:37)
--- NOTE | 2023-05-25 11:49 | Hospitalist Progress Note ---
Date of Service May 25, 2023 Assessment & Plan (1) Sepsis: (2) Prostatitis: (3) Complicated UTI (urinary tract infection): (4) Hx of prostate biopsy: (5) Chronic back pain: (6) Alcohol use disorder: (7) Insomnia: Plan This is a 63yo M with a PMH of secondary HTN, history of alcohol use disorder, elevated psa s/p prostate biopsy yesterday who presents with nausea and fever x 2 days in setting of recent prostate biopsy and concern for developing prostatitis. Sepsis Prostatitis Complicated UTI Tmax 102 F at home, HR 111, WBC 14k, lactate 2.9 -> 1.4 after IV fluids Received adequate IV fluid resuscitation in ED, continue empiric Cefepime Procal elevated Urine Cx from 05/23- growing E coli resistant only to fluoroquinolones UA repeat on 05/24 abnormal, follow up urine Cx from the same that is pending Blood cultures with NGTD CT abd/pelvis ordered given recent biopsy, suprapubic discomfort -noted prostatomegaly and calcification with mild edema, suggestive of prostatitis without evidence of prosthetic abscess. Continue Cefepime, wbc improving. Urology consult-appreciate recs -recommending 14 days of abx H/o recent prostate biopsy Elevated PSA in Mar, following with Dr. Worrell s/p core needle biopsy on 05/20 with path resulted showing prostate adenocarcinoma grade group 2 Urology consult -Per urologist Dr. Catalan, Dr. Worrell (pt's urologist) will be on tomorrow 05/26 and will discuss the biopsy pathology results with him then. Alcohol use disorder Endorses 4+ beers daily, last drink 2 days ago Appears hypertensive, flushed, restless in ED AWSS protocol with gabapentin and PRN IV ativan Continue to monitor HTN Holding hctz given hypoNa, hypokalemia and recent GI losses Monitor for improvement on etoh withdrawal protocol May require additional antihypertensives Currently stable Hyponatremia Sodium 131 on admission Holding home HCTZ Started on gentle fluids as pt not able to eat or tolerate PO at this time Continue to monitor with AM labs Hypokalemia Replete as needed Currently wnl Chronic back pain H/o laminectomy, on gabapentin hold home dose while receiving gabapentin withdrawal protocol as above Insomnia Amitriptyline 30mg HS Stable Diet: HH ordered, pt unable to eat, NSS ordered DVT Ppx: SQ lovenox Code status: FULL PCP: Dariela Dispo: PT/OT orders placed. Admission and Anticipated Discharge Date Admission Date: May 24, 2023 Subjective Pt seen in the AM, states that he feels a "hair better". States still having fevers and chills. Has not been able to eat yet, breakfast tray was untouched. Review of Systems Review of Systems: All systems reviewed & are unremarkable except as noted in Subjective Physical Exam Physical Exam: General: Alert, oriented. No acute distress Skin: No noted rashes or bruises Psych: Appropriate mood and affect Neuro: No gross deficits HEENT: NC/AT CV: RRR, Normal s1, s2. No murmurs appreciated Resp: Breath sounds clear bilaterally, no increased effort of breathing. Abdomen: Soft, nontender, nondistended. Extremities: No edema in lower extremities bilaterally. Results & Data Results & Data Vital Signs (Past 12 Hours) Vital Signs Temp Pulse Pulse Resp BP BP Pulse Ox 05/25/23 11:46 81 05/25/23 10:09 81 05/25/23 06:34 36.6 C 81 14 160/103 H 97 05/25/23 04:32 82 20 154/100 H 98 05/25/23 02:00 149/94 H 05/25/23 02:00 87 16 96 05/25/23 01:05 EST 90 16 151/93 H 96 05/25/23 01:01 EST 105 H 16 05/25/23 01:05 EDT 92 H 20 152/93 H 98 O2 Del Method 05/25/23 11:46 05/25/23 10:09 05/25/23 06:34 Room Air 05/25/23 04:32 Room Air 05/25/23 02:00 05/25/23 02:00 05/25/23 01:05 EST 05/25/23 01:01 EST 05/25/23 01:05 EDT Room Air
[2023-05-25] MEDS: DOCUSATE SODIUM 100 MG CAP PO SCH ×2 (13:23→19:48)
[2023-05-25] MEDS: POLYETHYLENE (MIRALAX) 17 GM PACK PO SCH (13:23)
[2023-05-25] MEDS: SODIUM CHLORIDE 0.9% 1,000 ML IV SCH (15:53)
--- NOTE | 2023-05-25 19:15 | Electrocardiogram Report ---
Test Reason : Blood Pressure : / mmHG Vent. Rate : 105 BPM Atrial Rate : 105 BPM P-R Int : 172 ms QRS Dur : 092 ms QT Int : 332 ms P-R-T Axes : 063 -20 045 degrees QTc Int : 438 ms Sinus tachycardia Incomplete right bundle branch block Borderline ECG When compared with ECG of 16-DEC-2020 14:19, No significant change was found Confirmed by Mal Go ([id number]) on 05/25/2023 7:15:21 PM Referred By: REFERRED SELF Confirmed By:Mal Go
[2023-05-25] MEDS: ENOXAPARIN INJ 40 MG/0.4 ML SYR SQ SCH (19:47)
[2023-05-25] MEDS: AMITRIPTYLINE HCL 10 MG TAB PO SCH (19:48)
[2023-05-26] MEDS: SODIUM CHLORIDE 0.9% 1,000 ML IV SCH ×2 (03:59→16:53)
[2023-05-26 04:39] LABS: Basophils # (auto) 0.03 K/uL (0.00-0.20); Basophils % (auto) 0.4 %; Eosinophils # (auto) 0.17 K/uL (0.00-0.50); Eosinophils % (auto) 2.2 %; Hemoglobin 13.6 g/dl (14.0-18.0); Immature Granulocytes # (auto) 0.08 K/uL (0.01-0.20); Lymphocytes # (auto) 1.08 K/uL (1.20-3.40); Mean Corpuscular Hemoglobin 31.9 pg (25.0-34.0); Mean Corpuscular Hgb Conc 35.8 g/dL (32.0-36.0); Mean Corpuscular Volume 89.2 fL (80.0-100.0); Mean Platelet Volume 11.9 fL (9.4-12.4); Monocytes # (auto) 1.15 K/uL (0.11-0.59); Monocytes % (auto) 14.9 %; Neutrophils # (auto) 5.21 K/uL (1.40-6.50); Neutrophils % (auto) 67.5 %; Platelet Count 117 K/uL (130-400); RDW Coefficient of Variation 12.1 % (11.5-14.5); RDW Standard Deviation 39.8 fL (36.4-46.3); Red Blood Count 4.26 M/uL (4.70-6.10); White Blood Count 7.72 K/ul (4.8-10.8)
[2023-05-26 04:53] LABS: BUN Creatinine Ratio 13.8 (10-20); Calcium 7.9 mg/dl (8.6-10.3); Creatinine Clr Calc Pharmacy 106.8 ml/min; Est GFR (African American) 110.2 ml/min; Est GFR (Non-African American) 95.1 ml/min; Potassium 3.5 mmol/L (3.5-5.1)
[2023-05-26 05:07] LABS: Albumin Globulin Ratio 1.1 (0.9-2); Albumin Level 3.2 gm/dl (3.4-5.0); Bilirubin,Total 0.9 mg/dl (0.2-1.0); Globulin 2.9 gm/dl (2.5-4.0); Magnesium 2.2 mg/dl (1.7-2.4); Phosphorus 1.3 mg/dl (2.5-4.9); Total Protein 6.1 gm/dl (6.0-8.3)
[2023-05-26] MEDS ORDERED: STAT IV/IM STA (05:20)
[2023-05-26] MEDS ORDERED: POTASSIUM PHOS 3 MMOL/1 ML INFUSION IV STA (05:22)
[2023-05-26] MEDS: CEFEPIME 2,000 MG in SYRINGE 0 ML IV SCH (05:32)
[2023-05-26] MEDS: GABAPENTIN 600 MG TAB PO SCH ×2 (05:32→16:53)
[2023-05-26] MEDS ORDERED: POTASSIUM CHLORIDE CRTAB 20 MEQ TABCR PO STA (05:33)
[2023-05-26] MEDS ORDERED: CALCIUM GLUCONATE 10% 1,000 MG in SODIUM CHLOR 0.9% MINI-B 50 ML IV ONE (05:45)
[2023-05-26] MEDS: ACETAMINOPHEN 325 MG TAB PO PRN ×3 (05:56→16:16)
[2023-05-26] MEDS ORDERED: POTASSIUM PHOSPHATE 40 MMOL in SODIUM CHLORIDE 0.9% 1,000 ML IV ONE (06:00)
[2023-05-26] MEDS: MULTIVITAMIN TAB PO SCH (09:10)
[2023-05-26] MEDS: TAMSULOSIN HCL 0.4 MG CAP PO SCH (09:10)
[2023-05-26] MEDS: DOCUSATE SODIUM 100 MG CAP PO SCH ×2 (09:11→20:44)
[2023-05-26] MEDS: POLYETHYLENE (MIRALAX) 17 GM PACK PO SCH (09:11)
[2023-05-26] MEDS: cefTRIAXone SODIUM 2,000 MG in DEXTROSE 5 % MINI-B 50 ML IV SCH (13:13)
--- NOTE | 2023-05-26 14:10 | Nuclear Medicine Report ---
WHOLE BODY BONE SCAN HISTORY: Prostate cancer. RADIOTRACER: 25.7 mCi Tc-99m MDP STUDY/IMAGES: Planar anterior and posterior whole body imaging was performed 3 hours following the i ntravenous administration of radiotracer. COMPARISON: Abdomen and pelvis CT 05/24/2023. FINDINGS: No suspicious areas of radiotracer uptake within the axial or appendicular skeleton to sugg est metastatic disease. Scattered areas of radiotracer uptake seen within the shoulders, sternoclavic ular joints, hips, knees, and feet favor degenerative change. IMPRESSION: No evidence for osseous metastatic disease. ACT 112: Negative or not required by law. Electronically signed by: Bulmaro Russell M.D. 05/26/2023 2:09 PM
[2023-05-26] MEDS ORDERED: HYDROCORTISONE HC 2.5% CRM 30GM TUBE EXT PRN (16:12)
[2023-05-26] MEDS: ONDANSETRON INJ 2 MG/ML 2 ML VIAL IV PRN (16:16)
[2023-05-26] MEDS ORDERED: Nursing to Pharmacy Communication SCH (16:30)
--- NOTE | 2023-05-26 16:53 | Hospitalist Progress Note ---
Date of Service May 26, 2023 Assessment & Plan (1) Sepsis: (2) Prostatitis: (3) Complicated UTI (urinary tract infection): (4) Hx of prostate biopsy: (5) Chronic back pain: (6) Alcohol use disorder: (7) Insomnia: Plan This is a 63yo M with a PMH of secondary HTN, history of alcohol use disorder, elevated psa s/p prostate biopsy yesterday who presents with nausea and fever x 2 days in setting of recent prostate biopsy and concern for developing prostatitis. Sepsis Prostatitis Complicated UTI Tmax 102 F at home, HR 111, WBC 14k, lactate 2.9 -> 1.4 after IV fluids Received adequate IV fluid resuscitation in ED, continue empiric Cefepime Procal elevated Urine Cx from 05/23- growing E coli resistant only to fluoroquinolones UA repeat on 05/24 abnormal, follow up urine Cx from the same that is pending Blood cultures with NGTD-remains negative so far CT abd/pelvis ordered given recent biopsy, suprapubic discomfort -noted prostatomegaly and calcification with mild edema, suggestive of prostatitis without evidence of prosthetic abscess. Continue Cefepime, wbc improving.-Antibiotic has been changed to IV ceftriaxone Urology consult-appreciate recs -recommending 14 days of abx Clinically much better and the pathology result is in No fever and or chills and has minimal dysuria Awaiting urologist to discuss the pathology results with the patient and the family member H/o recent prostate biopsy Elevated PSA in Mar, following with Dr. Worrell s/p core needle biopsy on 05/20 with path resulted showing prostate adenocarcinoma grade group 2 Urology consult -Per urologist Dr. Gm Scott (pt's urologist) will be on tomorrow 05/26 and will discuss the biopsy pathology results with him then. Patient is waiting for the urologist to disclose the pathology results to him and the family member Alcohol use disorder Endorses 4+ beers daily, last drink 2 days ago Appears hypertensive, flushed, restless in ED AWSS protocol with gabapentin and PRN IV ativan Continue to monitor No signs and or symptoms of withdrawal HTN Holding hctz given hypoNa, hypokalemia and recent GI losses Monitor for improvement on etoh withdrawal protocol May require additional antihypertensives Currently stable and remains on the lower side at 119/71 Hyponatremia Sodium 131 on admission Holding home HCTZ Started on gentle fluids as pt not able to eat or tolerate PO at this time Sodium level has been at 133 Hypokalemia Replete as needed Currently wnl-at 3.5 Chronic back pain H/o laminectomy, on gabapentin hold home dose while receiving gabapentin withdrawal protocol as above Insomnia Amitriptyline 30mg HS Stable Diet: HH ordered, pt unable to eat, NSS ordered DVT Ppx: SQ lovenox Code status: FULL PCP: Dariela Dispo: PT/OT orders placed. Admission and Anticipated Discharge Date Admission Date: May 24, 2023 Subjective 05/26/2023 The patient was seen and examined in ICU He is a status post prostate biopsy and was admitted with prostatitis/complicated UTI Has been feeling a little better but he still has dysuria Denies any fever and or chills Review of Systems Review of Systems: All systems reviewed and are unremarkable except as noted below Physical Exam Physical Exam: Lying in bed comfortably Constitutional: well developed, well nourished, + ill appearing and average body habitus Eyes: PERRL, conjunctivae normal, anicteric sclerae ENMT: external ear and nose normal, oropharynx normal Neck: trachea midline, no thyromegaly Respiratory: no respiratory distress Auscultation: lungs clear to auscultation bilaterally Cardiovascular: Rate/Rhythm: regular rate and regular rhythm; not tachycardic Heart Sounds: normal S1 and normal S2; no murmur Extremities: no edema Gastrointestinal (Abdomen): Inspection/Auscultation: normal bowel sounds; abdomen not distended Percussion/Palpation: abdomen soft; abdomen nontender Musculoskeletal: No acute arthritis involving any of the joint Neurologic: normal touch/pain/proprioception and moves all extremities; no focal motor deficits Psychiatric: A+Ox3, euthymic affect Lymphatic: no cervical or axillary lymphadenopathy Results & Data Results & Data Vital Signs (Past 12 Hours) Vital Signs Temp Pulse Pulse Resp BP Pulse Ox O2 Del Method 05/26/23 10:00 36.7 C 74 12 119/71 98 Room Air 05/26/23 08:02 36.9 C 78 14 144/88 H 96 Room Air 05/26/23 07:00 72 Laboratory Results Short CBC 05/26/23 Range/Units 03:45 WBC 7.72 (4.8-10.8) K/ul Hgb 13.6 L (14.0-18.0) g/dl Hct 38.0 L (42.0-52.0) % Plt Count 117 L (130-400) K/uL BMP 05/26/23 03:45 Sodium 133 L Potassium 3.5 Chloride 104 Carbon Dioxide 23 BUN 11 Creatinine 0.80 Glucose 96 Calcium 7.9 L Liver Function 05/26/23 Range/Units 03:45 Total Bilirubin 0.9 (0.2-1.0) mg/dl AST 21 (13-39) U/L ALT 14 (7-52) U/L Alkaline Phosphatase 51 (34-104) U/L Albumin 3.2 L (3.4-5.0) gm/dl Medications Administered Current Inpatient Medications Acetaminophen (Acetaminophen 325 Mg Tab) 650 mg PO Q4H PRN PRN Reason: Pain or Fever Stop: 06/23/23 17:12 Last Admin: 05/26/23 16:16 Dose: 650 mg Amitriptyline HCl (Amitriptyline Hcl 10 Mg Tab) 30 mg PO HS [facility] Stop: 06/23/23 20:59 Last Admin: 05/25/23 19:48 Dose: 30 mg Docusate Sodium (Docusate Sodium 100 Mg Cap) 100 mg PO BID [facility] Stop: 06/24/23 12:59 Last Admin: 05/26/23 09:11 Dose: Not Given Enoxaparin Sodium (Enoxaparin Inj 40 Mg/0.4 Ml Syr) 40 mg SQ Q24H [facility] Stop: 06/23/23 17:59 Last Admin: 05/25/23 19:47 Dose: 40 mg Gabapentin (Gabapentin 600 Mg Tab) 600 mg PO Q24H [facility] Stop: 05/28/23 04:01 Gabapentin (Gabapentin 600 Mg Tab) 600 mg PO Q12H [facility] Stop: 05/27/23 04:01 Last Admin: 05/26/23 16:53 Dose: 600 mg Hydrocortisone (Hydrocortisone Hc 2.5% Crm 30gm Tube) 1 appln EXT BID PRN PRN Reason: Hemorrhoids Stop: 06/25/23 16:11 Sodium Chloride (Nss) 1,000 mls @ 80 mls/hr IV .[id number] [facility] Stop: 06/24/23 15:29 Last Admin: 05/26/23 16:53 Dose: 80 mls/hr Ceftriaxone Sodium 2,000 mg/ (Dextrose) 50 mls @ 100 mls/hr IV Q24H [facility] Stop: 06/05/23 13:59 Last Infusion: 05/26/23 14:16 Dose: Infused Lorazepam (Lorazepam 2 Mg/1 Ml Vial) 1 mg IV UD PRN; Protocol PRN Reason: EtOH Withdrawal AWSS Score 6,7 Stop: 06/23/23 15:35 Multivitamins (Multivitamin Tab) 1 tab PO QAM [facility] Stop: 06/24/23 08:59 Last Admin: 05/26/23 09:10 Dose: 1 tab Ondansetron HCl (Ondansetron Inj 2 Mg/Ml 2 Ml Vial) 4 mg IV Q6H PRN PRN Reason: Nausea Stop: 06/23/23 17:12 Last Admin: 05/26/23 16:16 Dose: 4 mg Polyethylene Glycol (Polyethylene (Miralax) 17 Gm Pack) 17 gm PO DAILY [facility] Stop: 06/24/23 12:59 Last Admin: 05/26/23 09:11 Dose: Not Given Tamsulosin HCl (Tamsulosin Hcl 0.4 Mg Cap) 0.4 mg PO DAILY [facility] Stop: 06/23/23 17:59 Last Admin: 05/26/23 09:10 Dose: 0.4 mg
[2023-05-26] MEDS: ENOXAPARIN INJ 40 MG/0.4 ML SYR SQ SCH (18:39)
[2023-05-26] MEDS: AMITRIPTYLINE HCL 10 MG TAB PO SCH (20:43)
[2023-05-27] MEDS: GABAPENTIN 600 MG TAB PO SCH (03:47)
[2023-05-27] MEDS: SODIUM CHLORIDE 0.9% 1,000 ML IV SCH ×2 (03:51→15:44)
[2023-05-27 04:16] LABS: Basophils # (auto) 0.03 K/uL (0.00-0.20); Basophils % (auto) 0.4 %; Eosinophils # (auto) 0.01 K/uL (0.00-0.50); Eosinophils % (auto) 0.1 %; Hemoglobin 13.5 g/dl (14.0-18.0); Immature Granulocytes # (auto) 0.11 K/uL (0.01-0.20); Immature Granulocytes % (auto) 1.4 %; Lymphocytes # (auto) 1.53 K/uL (1.20-3.40); Lymphocytes % (auto) 19.9 %; Mean Corpuscular Hemoglobin 32.1 pg (25.0-34.0); Mean Corpuscular Hgb Conc 35.5 g/dL (32.0-36.0); Mean Corpuscular Volume 90.3 fL (80.0-100.0); Mean Platelet Volume 11.3 fL (9.4-12.4); Monocytes # (auto) 1.07 K/uL (0.11-0.59); Monocytes % (auto) 13.9 %; Neutrophils # (auto) 4.94 K/uL (1.40-6.50); Neutrophils % (auto) 64.3 %; Platelet Count 144 K/uL (130-400); RDW Coefficient of Variation 12.5 % (11.5-14.5); RDW Standard Deviation 41.2 fL (36.4-46.3); Red Blood Count 4.21 M/uL (4.70-6.10); White Blood Count 7.69 K/ul (4.8-10.8)
[2023-05-27 04:32] LABS: Albumin Globulin Ratio 1.1 (0.9-2); Albumin Level 3.3 gm/dl (3.4-5.0); BUN Creatinine Ratio 13.9 (10-20); Bilirubin,Total 0.9 mg/dl (0.2-1.0); Calcium 7.8 mg/dl (8.6-10.3); Creatinine Clr Calc Pharmacy 108.2 ml/min; Est GFR (African American) 110.8 ml/min; Est GFR (Non-African American) 95.6 ml/min; Globulin 2.9 gm/dl (2.5-4.0); Magnesium 2.1 mg/dl (1.7-2.4); Phosphorus 2.1 mg/dl (2.5-4.9); Potassium 3.6 mmol/L (3.5-5.1); Total Protein 6.2 gm/dl (6.0-8.3)
[2023-05-27] MEDS: DOCUSATE SODIUM 100 MG CAP PO SCH ×2 (07:33→21:16)
[2023-05-27] MEDS: MULTIVITAMIN TAB PO SCH (07:34)
[2023-05-27] MEDS: POLYETHYLENE (MIRALAX) 17 GM PACK PO SCH (07:34)
[2023-05-27] MEDS: TAMSULOSIN HCL 0.4 MG CAP PO SCH (07:34)
[2023-05-27] MEDS ORDERED: POTASSIUM PHOS 3 MMOL/1 ML INFUSION IV STA (08:26)
[2023-05-27] MEDS ORDERED: POTASSIUM PHOSPHATE 24 MMOL in SODIUM CHLORIDE 0.9% 500 ML IV ONE (08:30)
--- NOTE | 2023-05-27 13:14 | Hospitalist Progress Note ---
Date of Service May 27, 2023 Assessment & Plan (1) Sepsis: (2) Prostatitis: (3) Complicated UTI (urinary tract infection): (4) Hx of prostate biopsy: (5) Chronic back pain: (6) Alcohol use disorder: (7) Insomnia: Plan This is a 63yo M with a PMH of secondary HTN, history of alcohol use disorder, elevated psa s/p prostate biopsy yesterday who presents with nausea and fever x 2 days in setting of recent prostate biopsy and concern for developing prostatitis. Sepsis Prostatitis Complicated UTI Tmax 102 F at home, HR 111, WBC 14k, lactate 2.9 -> 1.4 after IV fluids Received adequate IV fluid resuscitation in ED, continue empiric Cefepime Procal elevated Urine Cx from 05/23- growing E coli resistant only to fluoroquinolones UA repeat on 05/24 abnormal, follow up urine Cx from the same that is pending Blood cultures with NGTD-remains negative so far CT abd/pelvis ordered given recent biopsy, suprapubic discomfort -noted prostatomegaly and calcification with mild edema, suggestive of prostatitis without evidence of prosthetic abscess. Continue Cefepime, wbc improving.-Antibiotic has been changed to IV ceftriaxone Urology consult-appreciate recs -recommending 14 days of abx Clinically much better and the pathology result is in No fever and or chills and has minimal dysuria Awaiting urologist to discuss the pathology results with the patient and the family member The patient is aware about the pathology report of prostate biopsy Bone scan has been negative for any metastasis He remains otherwise stable and plan to discharge home tomorrow H/o recent prostate biopsy Elevated PSA in Mar, following with Dr. Worrell s/p core needle biopsy on 05/20 with path resulted showing prostate adenocarcinoma grade group 2 Urology consult -Per urologist Dr. Gm Scott (pt's urologist) will be on tomorrow 05/26 and will discuss the biopsy pathology results with him then. Patient is waiting for the urologist to disclose the pathology results to him and the family member As above Alcohol use disorder Endorses 4+ beers daily, last drink 2 days ago Appears hypertensive, flushed, restless in ED AWSS protocol with gabapentin and PRN IV ativan Continue to monitor No signs and or symptoms of withdrawal HTN Holding hctz given hypoNa, hypokalemia and recent GI losses Monitor for improvement on etoh withdrawal protocol May require additional antihypertensives Currently stable and remains on the lower side at 119/71 Blood pressure remains stable Hyponatremia Sodium 131 on admission Holding home HCTZ Started on gentle fluids as pt not able to eat or tolerate PO at this time Sodium level has been at 134 Hypokalemia Replete as needed Currently wnl-at 3.5 Electrolytes are corrected Chronic back pain H/o laminectomy, on gabapentin hold home dose while receiving gabapentin withdrawal protocol as above Insomnia Amitriptyline 30mg HS Stable Diet: HH ordered, pt unable to eat, NSS ordered DVT Ppx: SQ lovenox Code status: FULL PCP: Dariela Dispo: PT/OT orders placed Appreciate PT input and recommendation. Will be discharged home tomorrow Admission and Anticipated Discharge Date Admission Date: May 24, 2023 Subjective 05/26/2023 The patient was seen and examined in ICU He is a status post prostate biopsy and was admitted with prostatitis/complicated UTI Has been feeling a little better but he still has dysuria Denies any fever and or chills 05/27/2023 The patient was seen and examined in ICU He remains stable but weak and lethargic Minimal symptoms with urination without any fever and or chills Said he is not yet ready to be discharged Review of Systems Review of Systems: All systems reviewed and are unremarkable except as noted below Physical Exam Physical Exam: Lying in bed comfortably Constitutional: well developed, well nourished, + ill appearing and average body habitus Eyes: PERRL, conjunctivae normal, anicteric sclerae ENMT: external ear and nose normal, oropharynx normal Neck: trachea midline, no thyromegaly Respiratory: no respiratory distress Auscultation: lungs clear to auscultation bilaterally Cardiovascular: Rate/Rhythm: regular rate and regular rhythm; not tachycardic Heart Sounds: normal S1 and normal S2; no murmur Extremities: no edema Gastrointestinal (Abdomen): Inspection/Auscultation: normal bowel sounds; abdomen not distended Percussion/Palpation: abdomen soft; abdomen nontender Musculoskeletal: No acute arthritis involving any of the joint Neurologic: normal touch/pain/proprioception and moves all extremities; no focal motor deficits Psychiatric: A+Ox3, euthymic affect Lymphatic: no cervical or axillary lymphadenopathy Results & Data Results & Data Vital Signs (Past 12 Hours) Vital Signs Temp Pulse Pulse Resp BP Pulse Ox O2 Del Method 05/27/23 11:46 80 14 147/84 H 94 Room Air 05/27/23 11:46 70 05/27/23 08:47 36.7 C 87 16 153/84 H 97 Room Air 05/27/23 07:00 70 05/27/23 03:46 36.9 C 71 18 146/95 H 97 Room Air 05/27/23 03:36 70 Laboratory Results Short CBC 05/27/23 Range/Units 03:47 WBC 7.69 (4.8-10.8) K/ul Hgb 13.5 L (14.0-18.0) g/dl Hct 38.0 L (42.0-52.0) % Plt Count 144 (130-400) K/uL BMP 05/27/23 03:47 Sodium 134 L Potassium 3.6 Chloride 105 Carbon Dioxide 22 BUN 11 Creatinine 0.79 Glucose 86 Calcium 7.8 L Liver Function 05/27/23 Range/Units 03:47 Total Bilirubin 0.9 (0.2-1.0) mg/dl AST 42 H (13-39) U/L ALT 27 (7-52) U/L Alkaline Phosphatase 50 (34-104) U/L Albumin 3.3 L (3.4-5.0) gm/dl Medications Administered Current Inpatient Medications Acetaminophen (Acetaminophen 325 Mg Tab) 650 mg PO Q4H PRN PRN Reason: Pain or Fever Stop: 06/23/23 17:12 Last Admin: 05/26/23 16:16 Dose: 650 mg Amitriptyline HCl (Amitriptyline Hcl 10 Mg Tab) 30 mg PO HS [facility] Stop: 06/23/23 20:59 Last Admin: 05/26/23 20:43 Dose: 30 mg Docusate Sodium (Docusate Sodium 100 Mg Cap) 100 mg PO BID [facility] Stop: 06/24/23 12:59 Last Admin: 05/27/23 07:33 Dose: Not Given Enoxaparin Sodium (Enoxaparin Inj 40 Mg/0.4 Ml Syr) 40 mg SQ Q24H [facility] Stop: 06/23/23 17:59 Last Admin: 05/26/23 18:39 Dose: 40 mg Gabapentin (Gabapentin 600 Mg Tab) 600 mg PO Q24H [facility] Stop: 05/28/23 04:01 Hydrocortisone (Hydrocortisone Hc 2.5% Crm 30gm Tube) 1 appln EXT BID PRN PRN Reason: Hemorrhoids Stop: 06/25/23 16:11 Sodium Chloride (Nss) 1,000 mls @ 80 mls/hr IV .[id number] [facility] Stop: 06/24/23 15:29 Last Admin: 05/27/23 03:51 Dose: 80 mls/hr Ceftriaxone Sodium 2,000 mg/ (Dextrose) 50 mls @ 100 mls/hr IV Q24H [facility] Stop: 06/05/23 13:59 Last Infusion: 05/26/23 14:16 Dose: Infused Potassium Phosphate 24 mmol/ (Sodium Chloride) 508 mls @ 88 mls/hr IV NOW ONE Stop: 05/27/23 14:16 Last Admin: 05/27/23 09:15 Dose: 88 mls/hr Lorazepam (Lorazepam 2 Mg/1 Ml Vial) 1 mg IV UD PRN; Protocol PRN Reason: EtOH Withdrawal AWSS Score 6,7 Stop: 06/23/23 15:35 Multivitamins (Multivitamin Tab) 1 tab PO QAM [facility] Stop: 06/24/23 08:59 Last Admin: 05/27/23 07:34 Dose: 1 tab Ondansetron HCl (Ondansetron Inj 2 Mg/Ml 2 Ml Vial) 4 mg IV Q6H PRN PRN Reason: Nausea Stop: 06/23/23 17:12 Last Admin: 05/26/23 16:16 Dose: 4 mg Polyethylene Glycol (Polyethylene (Miralax) 17 Gm Pack) 17 gm PO DAILY [facility] Stop: 06/24/23 12:59 Last Admin: 05/27/23 07:34 Dose: Not Given Tamsulosin HCl (Tamsulosin Hcl 0.4 Mg Cap) 0.4 mg PO DAILY [facility] Stop: 06/23/23 17:59 Last Admin: 05/27/23 07:34 Dose: 0.4 mg
[2023-05-27] MEDS: cefTRIAXone SODIUM 2,000 MG in DEXTROSE 5 % MINI-B 50 ML IV SCH (15:44)
[2023-05-27] MEDS: ACETAMINOPHEN 325 MG TAB PO PRN (15:45)
[2023-05-27] MEDS: hydroCHLOROthiazide 25 MG TAB PO SCH (16:27)
[2023-05-27] MEDS: ENOXAPARIN INJ 40 MG/0.4 ML SYR SQ SCH (17:58)
[2023-05-27] MEDS: AMITRIPTYLINE HCL 10 MG TAB PO SCH (21:03)
[2023-05-27] MEDS ORDERED: ALUMINUM/MAGNESIUM SUSP 30 ML UDC PO STA (21:11)
[2023-05-27] MEDS: ONDANSETRON INJ 2 MG/ML 2 ML VIAL IV PRN (21:32)
[2023-05-28] MEDS: SODIUM CHLORIDE 0.9% 1,000 ML IV SCH (03:51)
[2023-05-28] MEDS ORDERED: GABAPENTIN 600 MG TAB PO SCH (04:00)
[2023-05-28 04:22] LABS: Basophils # (auto) 0.05 K/uL (0.00-0.20); Basophils % (auto) 0.5 %; Hematocrit (blood only) 38.6 % (42.0-52.0); Immature Granulocytes # (auto) 0.22 K/uL (0.01-0.20); Immature Granulocytes % (auto) 2.2 %; Lymphocytes # (auto) 2.31 K/uL (1.20-3.40); Lymphocytes % (auto) 23.4 %; Mean Corpuscular Hemoglobin 31.8 pg (25.0-34.0); Mean Corpuscular Hgb Conc 36.3 g/dL (32.0-36.0); Mean Corpuscular Volume 87.7 fL (80.0-100.0); Monocytes # (auto) 1.24 K/uL (0.11-0.59); Monocytes % (auto) 12.6 %; Neutrophils # (auto) 6.06 K/uL (1.40-6.50); Neutrophils % (auto) 61.3 %; Platelet Count 185 K/uL (130-400); RDW Coefficient of Variation 12.3 % (11.5-14.5); RDW Standard Deviation 39.9 fL (36.4-46.3); White Blood Count 9.88 K/ul (4.8-10.8)
[2023-05-28 04:51] LABS: Albumin Level 3.7 gm/dl (3.4-5.0); Bilirubin,Total 0.8 mg/dl (0.2-1.0); Calcium 8.4 mg/dl (8.6-10.3); Magnesium 2.3 mg/dl (1.7-2.4); Potassium 3.5 mmol/L (3.5-5.1)
[2023-05-28 04:57] LABS: Albumin Globulin Ratio 1.2 (0.9-2); BUN Creatinine Ratio 14.5 (10-20); Creatinine Clr Calc Pharmacy 112.4 ml/min; Est GFR (African American) 112.5 ml/min; Est GFR (Non-African American) 97.1 ml/min; Phosphorus 2.6 mg/dl (2.5-4.9); Total Protein 6.7 gm/dl (6.0-8.3)
[2023-05-28] MEDS: POLYETHYLENE (MIRALAX) 17 GM PACK PO SCH (07:51)
[2023-05-28] MEDS: DOCUSATE SODIUM 100 MG CAP PO SCH (07:51)
[2023-05-28] MEDS: MULTIVITAMIN TAB PO SCH (07:51)
[2023-05-28] MEDS: hydroCHLOROthiazide 25 MG TAB PO SCH (07:52)
[2023-05-28] MEDS: TAMSULOSIN HCL 0.4 MG CAP PO SCH (07:52)
--- NOTE | 2023-05-28 12:02 | Hospitalist Progress Note ---
Date of Service May 28, 2023 Assessment & Plan (1) Sepsis: (2) Prostatitis: (3) Complicated UTI (urinary tract infection): (4) Hx of prostate biopsy: (5) Chronic back pain: (6) Alcohol use disorder: (7) Insomnia: Plan This is a 63yo M with a PMH of secondary HTN, history of alcohol use disorder, elevated psa s/p prostate biopsy yesterday who presents with nausea and fever x 2 days in setting of recent prostate biopsy and concern for developing prostatitis. Sepsis Prostatitis Complicated UTI Tmax 102 F at home, HR 111, WBC 14k, lactate 2.9 -> 1.4 after IV fluids Received adequate IV fluid resuscitation in ED, continue empiric Cefepime Procal elevated Urine Cx from 05/23- growing E coli resistant only to fluoroquinolones UA repeat on 05/24 abnormal, follow up urine Cx from the same that is pending Blood cultures with NGTD-remains negative so far CT abd/pelvis ordered given recent biopsy, suprapubic discomfort -noted prostatomegaly and calcification with mild edema, suggestive of prostatitis without evidence of prosthetic abscess. Continue Cefepime, wbc improving.-Antibiotic has been changed to IV ceftriaxone Urology consult-appreciate recs -recommending 14 days of abx Clinically much better and the pathology result is in No fever and or chills and has minimal dysuria Awaiting urologist to discuss the pathology results with the patient and the family member The patient is aware about the pathology report of prostate biopsy Bone scan has been negative for any metastasis He remains otherwise stable and plan to discharge home tomorrow Will start Keflex and continue for a total of 14 days of antibiotic as per recommendation from the urologist Advised to drink more fluid and will be discharged home this afternoon H/o recent prostate biopsy Elevated PSA in Mar, following with Dr. Worrell s/p core needle biopsy on 05/20 with path resulted showing prostate adenocarcinoma grade group 2 Urology consult -Per urologist Dr. Gm Scott (pt's urologist) will be on tomorrow 05/26 and will discuss the biopsy pathology results with him then. Patient is waiting for the urologist to disclose the pathology results to him and the family member As above Alcohol use disorder Endorses 4+ beers daily, last drink 2 days ago Appears hypertensive, flushed, restless in ED AWSS protocol with gabapentin and PRN IV ativan Continue to monitor No signs and or symptoms of withdrawal LFTs are abnormal likely secondary to use of alcohol-strongly advised to quit drinking HTN Holding hctz given hypoNa, hypokalemia and recent GI losses Monitor for improvement on etoh withdrawal protocol May require additional antihypertensives Currently stable and remains on the lower side at 119/71 Blood pressure remains stable Hyponatremia Sodium 131 on admission Holding home HCTZ Started on gentle fluids as pt not able to eat or tolerate PO at this time Sodium level has been at 135 Hypokalemia Replete as needed Currently wnl-at 3.5 Electrolytes are corrected Chronic back pain H/o laminectomy, on gabapentin hold home dose while receiving gabapentin withdrawal protocol as above We will continue medications as an outpatient Insomnia Amitriptyline 30mg HS Stable Diet: HH ordered, pt unable to eat, NSS ordered DVT Ppx: SQ lovenox Code status: FULL PCP: Dariela Dispo: PT/OT orders placed Appreciate PT input and recommendation. Will be discharged home this afternoon Admission and Anticipated Discharge Date Admission Date: May 24, 2023 Subjective 05/26/2023 The patient was seen and examined in ICU He is a status post prostate biopsy and was admitted with prostatitis/complicated UTI Has been feeling a little better but he still has dysuria Denies any fever and or chills 05/27/2023 The patient was seen and examined in ICU He remains stable but weak and lethargic Minimal symptoms with urination without any fever and or chills Said he is not yet ready to be discharged 05/28/2023 The patient was seen and examined in ICU He has been feeling much better today and denies any dysuria Nausea is controlled with current symptomatic medication Denies any fever and or chills He will be discharged home this afternoon Review of Systems Review of Systems: All systems reviewed and are unremarkable except as noted below Physical Exam 2 Physical Exam: Lying in bed comfortably Constitutional: well developed, well nourished, + ill appearing and average body habitus Eyes: PERRL, conjunctivae normal, anicteric sclerae ENMT: external ear and nose normal, oropharynx normal Neck: trachea midline, no thyromegaly Respiratory: no respiratory distress Auscultation: lungs clear to auscultation bilaterally Cardiovascular: Rate/Rhythm: regular rate and regular rhythm; not tachycardic Heart Sounds: normal S1 and normal S2; no murmur Extremities: no edema Gastrointestinal (Abdomen): Inspection/Auscultation: normal bowel sounds; abdomen not distended Percussion/Palpation: abdomen soft; abdomen nontender Musculoskeletal: No acute arthritis involving any of the joint Neurologic: normal touch/pain/proprioception and moves all extremities; no focal motor deficits Psychiatric: A+Ox3, euthymic affect Lymphatic: no cervical or axillary lymphadenopathy Results & Data Results & Data Vital Signs (Past 12 Hours) Vital Signs Temp Pulse Pulse Resp BP Pulse Ox O2 Del Method 05/28/23 10:58 64 05/28/23 07:41 36.7 C 82 16 161/93 H 98 Room Air 05/28/23 03:53 36.6 C 76 19 157/85 H 97 Room Air Laboratory Results Short CBC 05/28/23 Range/Units 03:41 WBC 9.88 (4.8-10.8) K/ul Hgb 14.0 (14.0-18.0) g/dl Hct 38.6 L (42.0-52.0) % Plt Count 185 (130-400) K/uL BMP 05/28/23 03:41 Sodium 135 L Potassium 3.5 Chloride 103 Carbon Dioxide 25 BUN 11 Creatinine 0.76 Glucose 83 Calcium 8.4 L Liver Function 05/28/23 Range/Units 03:41 Total Bilirubin 0.8 (0.2-1.0) mg/dl AST 156 H (13-39) U/L ALT 114 H (7-52) U/L Alkaline Phosphatase 60 (34-104) U/L Albumin 3.7 (3.4-5.0) gm/dl Medications Administered Current Inpatient Medications Acetaminophen (Acetaminophen 325 Mg Tab) 650 mg PO Q4H PRN PRN Reason: Pain or Fever Stop: 06/23/23 17:12 Last Admin: 05/27/23 15:45 Dose: 650 mg Amitriptyline HCl (Amitriptyline Hcl 10 Mg Tab) 30 mg PO HS [facility] Stop: 06/23/23 20:59 Last Admin: 05/27/23 21:03 Dose: 30 mg Docusate Sodium (Docusate Sodium 100 Mg Cap) 100 mg PO BID [facility] Stop: 06/24/23 12:59 Last Admin: 05/28/23 07:51 Dose: Not Given Enoxaparin Sodium (Enoxaparin Inj 40 Mg/0.4 Ml Syr) 40 mg SQ Q24H [facility] Stop: 06/23/23 17:59 Last Admin: 05/27/23 17:58 Dose: 40 mg Hydrochlorothiazide (Hydrochlorothiazide 25 Mg Tab) 25 mg PO QAM [facility] Stop: 06/26/23 16:14 Last Admin: 05/28/23 07:52 Dose: 25 mg Hydrocortisone (Hydrocortisone Hc 2.5% Crm 30gm Tube) 1 appln EXT BID PRN PRN Reason: Hemorrhoids Stop: 06/25/23 16:11 Sodium Chloride (Nss) 1,000 mls @ 80 mls/hr IV .[id number] [facility] Stop: 06/24/23 15:29 Last Admin: 05/28/23 03:51 Dose: 80 mls/hr Ceftriaxone Sodium 2,000 mg/ (Dextrose) 50 mls @ 100 mls/hr IV Q24H [facility] Stop: 06/05/23 13:59 Last Infusion: 05/27/23 16:26 Dose: Infused Lorazepam (Lorazepam 2 Mg/1 Ml Vial) 1 mg IV UD PRN; Protocol PRN Reason: EtOH Withdrawal AWSS Score 6,7 Stop: 06/23/23 15:35 [facility]ivit[facility] ([facility] Tab) [facility] [place]: 06/24/23 08:59 Last Admin: 05/28/23 07:51 Dose: 1 tab Ondansetron HCl (Ondansetron Inj 2 Mg/Ml 2 Ml Vial) 4 mg IV Q6H PRN PRN Reason: Nausea Stop: 06/23/23 17:12 Last Admin: 05/27/23 21:32 Dose: 4 mg Polyethylene Glycol (Polyethylene (Miralax) 17 Gm Pack) 17 gm PO DAILY [facility] Stop: 06/24/23 12:59 Last Admin: 05/28/23 07:51 Dose: Not Given Tamsulosin HCl (Tamsulosin Hcl 0.4 Mg Cap) 0.4 mg PO DAILY [facility] Stop: 06/23/23 17:59 Last Admin: 05/28/23 07:52 Dose: 0.4 mg
[2023-05-28] MEDS ORDERED: cephALEXin 500 MG CAP PO SCH (13:00)
--- NOTE | 2023-05-29 08:42 | Discharge Summary ---
Date of Service May 29, 2023 Admission HPI Per Admitting Provider This is a 63yo M with a PMH of secondary HTN, history of alcohol use disorder, elevated psa s/p prostate biopsy yesterday who presents with nausea and fever x 2 days. Follows with [facility] [place] for dysuria, orchialgia and was found to have elevated psa of 31 in Mar and underwent prostate biopsy with Dr. Worrell on 05/20. States he completed abx course as prescribed around time of biopsy and felt fine until 2 days ago when he developed nausea, vomiting and fever. Was seen in urology office on 05/23 and received a shot of Rocephin for concern ? prostatitis. Was prescribed Keflex and Bactrim by urology but do to persistent N/V has not able to take them. Was vomiting overnight and had a Tmax 102 so presented to ED for further evaluation. Endorsing chills, sweats, nausea and feeling restless. Increased urinary urgency but feels like he cannot fully empty bladder with some resulting pelvic discomfort. No dysuria. No headache, lightheadedness, CP, SOB, abdominal pain, diarrhea or constipation. Reduced PO intake over past 2 days and has not had any alcohol in 2 says. Typically endorses 4 beers/day. Admission Exam Per Admitting Provider Physical Exam: General Appearance: WD/WN, vitals as above, NAD, sitting up in bed, in acute distress, restless, flushed Head: normocephalic, atraumatic Eyes: normal inspection, PERRL, conjunctivae normal, anicteric sclerae ENT: external ear and nose normal, oropharynx with dry mucous membranes Neck: normal visual inspection, trachea midline, no thyromegaly Respiratory: normal respiratory effort, lungs clear to auscultation, no wheeze, rales, rhonchi. No accessory muscle use Cardiovascular: tachycardic rate, regular rhythm, no murmur, normal peripheral pulses, no BLE edema. Vessels: no JVD Chest: normal inspection of chest Abdomen/GI: normal bowel sounds, soft, nontender, no hepatosplenomegaly : Suprapubic TTP L>R, no CVA TTP Extremities/Musculoskeletal: no cyanosis or clubbing, extremities motor strength 5/5 Neurologic: PERRL, EOMI, accommodation nl, no face palsy, no dysarthria, CN's II-XI intact bilaterally and moves all extremities Psychiatric: A+Ox3 Skin: no rashes, normal color, warm/dry Principal Diagnosis Sepsis secondary to prostatitis and complicated UTI, prostatic adenocarcinoma, elevated liver enzymes likely secondary to alcoholism Discharge Exam Lying in bed comfortably Constitutional well developed, well nourished, + ill appearing and average body habitus Eyes PERRL, conjunctivae normal, anicteric sclerae ENMT external ear and nose normal, oropharynx normal Neck trachea midline, no thyromegaly Respiratory no respiratory distress Auscultation: lungs clear to auscultation bilaterally Cardiovascular Rate/Rhythm: regular rate and regular rhythm; not tachycardic Heart Sounds: normal S1 and normal S2; no murmur Extremities: no edema Gastrointestinal (Abdomen) Inspection/Auscultation: normal bowel sounds; abdomen not distended Percussion/Palpation: abdomen soft; abdomen nontender Neurologic normal touch/pain/proprioception and moves all extremities; no focal motor deficits Psychiatric A+Ox3, euthymic affect Lymphatic no cervical or axillary lymphadenopathy Discharge Data Allergies Allergy/AdvReac Type Severity Reaction Status Date / Time bee pollen Allergy Intermediate itchy Unverified 05/24/23 14:29 pollen extracts Allergy Intermediate Hives Unverified 05/24/23 14:29 Consultations 05/24/23 16:19 Consult Urology Routine Ordered Studies 05/24/23 16:17 CT abd pelvis IV con only Routine Hospital Course (1) Sepsis: (2) Prostatitis: (3) Complicated UTI (urinary tract infection): (4) Hx of prostate biopsy: (5) Chronic back pain: (6) Alcohol use disorder: (7) Insomnia: Plan This is a 63yo M with a PMH of secondary HTN, history of alcohol use disorder, elevated psa s/p prostate biopsy yesterday who presents with nausea and fever x 2 days in setting of recent prostate biopsy and concern for developing prostatitis. Sepsis Prostatitis Complicated UTI Tmax 102 F at home, HR 111, WBC 14k, lactate 2.9 -> 1.4 after IV fluids Received adequate IV fluid resuscitation in ED, continue empiric Cefepime Procal elevated Urine Cx from 05/23- growing E coli resistant only to fluoroquinolones UA repeat on 05/24 abnormal, follow up urine Cx from the same that is pending Blood cultures with NGTD-remains negative so far CT abd/pelvis ordered given recent biopsy, suprapubic discomfort -noted prostatomegaly and calcification with mild edema, suggestive of prostatitis without evidence of prosthetic abscess. Continue Cefepime, wbc improving.-Antibiotic has been changed to IV ceftriaxone Urology consult-appreciate recs -recommending 14 days of abx Clinically much better and the pathology result is in No fever and or chills and has minimal dysuria Awaiting urologist to discuss the pathology results with the patient and the family member The patient is aware about the pathology report of prostate biopsy Bone scan has been negative for any metastasis He remains otherwise stable and plan to discharge home tomorrow Will start Keflex and continue for a total of 14 days of antibiotic as per recommendation from the urologist Advised to drink more fluid and will be discharged home this afternoon H/o recent prostate biopsy Elevated PSA in Mar, following with Dr. Worrell s/p core needle biopsy on 05/20 with path resulted showing prostate adenocarcinoma grade group 2 Urology consult -Per urologist Dr. Catalan, Dr. Worrell (pt's urologist) will be on tomorrow 05/26 and will discuss the biopsy pathology results with him then. Patient is waiting for the urologist to disclose the pathology results to him and the family member As above Alcohol use disorder Endorses 4+ beers daily, last drink 2 days ago Appears hypertensive, flushed, restless in ED AWSS protocol with gabapentin and PRN IV ativan Continue to monitor No signs and or symptoms of withdrawal LFTs are abnormal likely secondary to use of alcohol-strongly advised to quit drinking HTN Holding hctz given hypoNa, hypokalemia and recent GI losses Monitor for improvement on etoh withdrawal protocol May require additional antihypertensives Currently stable and remains on the lower side at 119/71 Blood pressure remains stable Hyponatremia Sodium 131 on admission Holding home HCTZ Started on gentle fluids as pt not able to eat or tolerate PO at this time Sodium level has been at 135 Hypokalemia Replete as needed Currently wnl-at 3.5 Electrolytes are corrected Chronic back pain H/o laminectomy, on gabapentin hold home dose while receiving gabapentin withdrawal protocol as above We will continue medications as an outpatient Insomnia Amitriptyline 30mg HS Stable Diet: HH ordered, pt unable to eat, NSS ordered DVT Ppx: SQ lovenox Code status: FULL PCP: Dariela Dispo: PT/OT orders placed Appreciate PT input and recommendation. Will be discharged home this afternoon Total Time Total Time Spent Total Time Spent (In Minutes): 35 minutes Discharge Plan Discharge Items Patient Disposition: Home - Self-Care Reason For Visit: SEPSIS 2/2 PROSTATITIS Discharge Diagnosis: Sepsis secondary to prostatitis and complicated UTI, prostatic adenocarcinoma, elevated liver enzymes likely secondary to alcoholism Condition on Discharge: Fair Activity: Resume your previous activity Non-emergency contact: Primary Care Provider Call non-emergency contact if: you have any medication questions and your symptoms worsen Follow-up/Referrals: Braden Worrell DO [Physician] - (The doctor office will call with an appointment) Jas Lyle MD [Primary Care Provider] - (Date & Time 06/03/2023 6:00 PM Provider Jas Lyle MD Department [facility] ) Diet: Heart Healthy Addtl Attending Provider Instructions: Please take precautions to avoid falls Try to quit drinking of alcohol Current medications as advised Complete the course of antibiotic Keep appointments with your healthcare providers Pending Studies at Discharge: No Stand-Alone Forms: My [facility] [employer], Smoking Cessation Medications and DC Order Prescriptions: New hydrocortisone [Proctosol HC] 2.5 % Cream With Perineal Applicator 1 applic EXT BID PRN (Reason: hemorrhoids) Qty: 30 0RF cephalexin 500 mg Capsule 500 mg PO TID Qty: 30 0RF ondansetron 8 mg tablet,disintegrating 8 mg PO BID PRN (Reason: nausea and vomiting) 5 Days Qty: 10 0RF Continued tadalafil 10 mg tablet 10 mg PO DAILY PRN (Reason: sexual activity) Qty: 30 0RF Rx Instructions: administer approximately 30min before sexual activity; do not exceed 20 mg in 24 hours. tamsulosin 0.4 mg capsule 0.4 mg PO DAILY Qty: 30 11RF amitriptyline 10 mg tablet 30 mg PO HS hydrochlorothiazide 25 mg tablet 25 mg PO QAM gabapentin [Neurontin] 300 mg capsule 300 mg PO TID multivitamin Tablet 1 tab PO QAM omega-3 fatty acids 1,000 mg Capsule 1,000 mg PO Q3D Discontinued sulfamethoxazole-trimethoprim [Bactrim DS] 800-160 mg tablet 1 tab PO BID 5 Days Qty: 10 0RF Rx Instructions: As of 05/24/23 pt hasn't started medication yet. Originally written for Start Date 05/23/23 - End Date 05/28/23 cephalexin 500 mg capsule 500 mg PO BID 7 Days Qty: 14 0RF Rx Instructions: As of 05/24/23 pt hasn't started medication yet. Originally written for Start Date 05/23/23 - End Date 05/30/23 Discharge Orders: Discharge Order (Routine); Ordered 05/28/23 Ordered By: Molly Vazquez Admission Data Admit Date/Time: 05/24/23 15:48 Attending Provider: Molly Vazquez Admit Provider: Mulugeta Rodriguez Primary Care Provider: Jas Lyle Other Providers: Gerard Catalan Other Interventions: Discharge Summary Assessment (RN) Last Done: 05/28/23 12:32
--- NOTE | 2023-05-31 05:51 | Coding Query ---
CODING QUERY To promote full compliance with coding requirements relating to patient care, provider participation is requested in all cases of supervisor sunglasses uncertainty. Please assist us with the question(s) below: Coding Question(s): Pt admitted with gram-negative Sepsis & complicated UTI. , 4 days post core needle biopsy prostate. 05/28 progress note documented "nausea,fever in the setting of recent prostate biopsy & cancer of prostate.". . Please document, if known or suspected the etiology of the Sepsis/complicated UTI. Thanks for your help! Timothy Read [facility] Physician's Response(s): Complicated UTI is likely secondary to the recent prostate Biopsy Principal Diagnosis: "that condition established after study, to be chiefly responsible for occasioning the admission of the patient to the hospital for care." Co-Existing Principal Diagnosis: "when two or more diagnoses equally meet the criteria for principal diagnosis as determined by the circumstances of admission, diagnostic work up, and/or therapy provided, and the Alphabetic Index, Tabular List, or another coding guideline does not provide sequencing direction, any one of the diagnoses may be sequenced first." "When the physician has documented what appears to be a current diagnosis in the body of the record, but has not included the diagnosis in the final diagnostic statement, the physician should be asked whether the diagnosis should be added." (Source Coding Clinic 2 QTR90. p3-4) DOMINGUEZ
== END 2023-05-28 14:38 | disposition home or self-care (01) | DRG 862 ==
LOC: ED 12:13 → EDINP 15:48 → SUATTDRO 15:48 → 1E 17:13

== ENCOUNTER 2023-07-24 06:44 | Observation (INO) ==
--- NOTE | 2023-07-18 10:15 | Anesthesiology Consultation ---
Date of Service July 18, 2023 Assessment & Plan Chart Review Chart Review: Acceptable Risk for Surgery and Patient NOT seen in Pre Admission Testing Consults Requested none History Surgery Operation Date: 07/24/23 08:15 Proposed Procedures p Robotic assisted Radical Retropubic Prostatectomy, Possible Open, Possible Pelvic Lymph Node Dissection - Braden Worrell DO Height/Weight Height: 6 ft 1 in Weight: 88.451 kg Allergies Allergy/AdvReac Type Severity Reaction Status Date / Time bee pollen Allergy Intermediate itchy Unverified 07/15/23 09:54 pollen extracts Allergy Intermediate Hives Unverified 07/15/23 09:54 Medications Home Medications Medication Instructions Recorded Confirmed Last Taken amitriptyline 10 mg tablet 30 mg PO HS 04/07/19 07/15/23 05/21/23 hydrochlorothiazide 25 mg tablet 25 mg PO QAM 04/07/19 07/15/23 05/21/23 gabapentin 300 mg capsule 300 mg PO TID 12/16/20 07/15/23 05/21/23 (Neurontin) multivitamin 1 tab PO QAM 12/16/20 07/15/23 05/21/23 tadalafil 10 mg tablet 10 mg PO DAILY PRN sexual activity 04/25/23 07/15/23 Unknown #30 tabs omega-3 fatty acids 1,000 mg 1,000 mg PO Q3D 05/24/23 07/15/23 Unknown capsule hydrocortisone 2.5 % topical cream 1 applic EXT BID PRN hemorrhoids 05/28/23 07/15/23 Unknown with perineal applicator #30 grams (Proctosol HC) docusate sodium 100 mg capsule 100 mg PO BID #60 caps 07/15/23 07/15/23 Unknown (Colace) tamsulosin 0.4 mg capsule 0.4 mg PO QAM 07/15/23 07/15/23 Unknown Past Medical History Medical History History of degenerative disc disease Diverticulosis Constipation History of recent hospitalization 05/2023 [facility] - sepsis 2/2 prostatitis Prostate cancer dx'd 05/2023. HLD (hyperlipidemia) Insomnia Chronic back pain Orchalgia Hypertension Past Family History Family History Father Diabetes Heart disease Hypertension Other No family history of adverse response to anesthesia Past Surgical History Surgical History History of colonoscopy History of prostate biopsy H/O inguinal hernia repair Hx of tonsillectomy History of lumbar laminectomy Social History Smoking Status: Former smoker Do You Dip or Chew Tobacco: No Smoking End Date: 24 years ago Hx Alcohol Use: Yes Alcohol type: beer alcohol intake frequency: 0-2 drinks per day Alcohol Intake Frequency Comment: 2 beers per day Hx Substance Use: Yes substance use type: marijuana Last Used Substance: Days (ago) Lab Results Anesthesia Preop Results Results Anesthesia Widget: WBC 9.88 K/ul (4.8-10.8) 05/28/23 Hgb 14.0 g/dl (14.0-18.0) 05/28/23 Hct 38.6 % (42.0-52.0) L 05/28/23 Plt 185 K/uL (130-400) 05/28/23 Na 135 mmol/L (136-145) L 05/28/23 K 3.5 mmol/L (3.5-5.1) 05/28/23 Cl 103 mmol/L (98-107) 05/28/23 CO2 25 mmol/L (21-32) 05/28/23 BUN 11 mg/dl (6-23) 05/28/23 Creat 0.76 mg/dl (0.6-1.4) 05/28/23 Glucose Level 83 mg/dl (70-99(Fasting)) 05/28/23 Testing Electrocardiogram Date: 05/24/23 Sinus tachycardia, rate 105 bpm Incomplete right bundle branch block Borderline ECG When compared with ECG of 16-DEC-2020 14:19, No significant change was found Confirmed by Mal Go ([id number]) on 05/25/2023 7:15:21 PM Chest X-Ray Date: 05/24/23 IMPRESSION: No acute abnormalities and in particular no radiographic evidence of pneumonia.
[~2023-07-24 06:44] MED LIST: HEPARIN SOD 5,000 UNIT/0.5 ML VIAL SC SCH; LR 15ML/HR IV SCH; ceFAZolin 2000MG 2,000 MG/15 ML SYR IV SCH
--- NOTE | 2023-07-24 07:01 | History & Physical Bridge Note ---
Date of Service July 24, 2023 History & Physical Bridge Note I have examined the patient, reviewed the History & Physical and in the interval since the performance of the History & Physical I have noted the following changes of clinical significance: no changes noted
[2023-07-24] MEDS ORDERED: PROPOFOL IV EMULSION 10 MG/ML 20 ML VIAL IV ONE (07:18)
[2023-07-24] MEDS ORDERED: LIDOCAINE 2% 2 ML VIAL/AMP(20MG/ML) INFIL ONE (07:18)
[2023-07-24] MEDS ORDERED: ROCURONIUM BROMIDE 10 MG/ML 5 ML VIAL IV ONE ×2 (07:18→10:57)
[2023-07-24] MEDS ORDERED: ONDANSETRON INJ 2 MG/ML 2 ML VIAL ONE ×2 (07:18→11:53)
[2023-07-24] MEDS ORDERED: DEXAMETHASONE SOD INJ 4 MG/ML VIAL ONE (07:18)
[2023-07-24] MEDS ORDERED: fentaNYL citrate PF 100 MCG/2 ML VIAL ONE ×2 (07:19→09:06)
[2023-07-24] MEDS ORDERED: MIDAZOLAM HCL 1 MG/ML 2ML VIAL ONE (07:19)
[2023-07-24] MEDS ORDERED: SUGAMMADEX SODIUM 200 MG/2 ML VIAL IV ONE (07:23)
[2023-07-24] MEDS ORDERED: BUPIVACAINE 0.5 % 5 MG/1 ML MPF 30ML VIAL ONE (07:59)
[2023-07-24] MEDS ORDERED: fentaNYL citrate PF 100 MCG/2 ML VIAL IV PRN (08:09)
[2023-07-24] MEDS ORDERED: ONDANSETRON INJ 2 MG/ML 2 ML VIAL IV PRN (08:09)
[2023-07-24] MEDS ORDERED: PROMETHAZINE HCL 6.25 MG in SODIUM CHLORIDE 0.9% 50 ML IV PRN (08:09)
[2023-07-24] MEDS ORDERED: ATROPINE SULFATE 0.1 MG/ML 10ML SYR IV PRN (08:09)
[2023-07-24] MEDS ORDERED: ePHEDrine sulfate 50 MG/ML AMP IV PRN (08:09)
[2023-07-24] MEDS ORDERED: KETAMINE HCL 10MG/ML SYR ONE (08:40)
[2023-07-24] MEDS ORDERED: ACETAMINOPHEN 1000 MG/100 ML IV IV ONE (08:40)
[2023-07-24] MEDS ORDERED: HYDROmorphone INJ 2 MG/ML SYR/VIAL ONE (09:26)
[2023-07-24] MEDS ORDERED: FLOSEAL HEMOSTATIC MATRIX 10ML TOP ONE (09:28)
[2023-07-24] MEDS ORDERED: SURGICEL ABSORB HEMOSTAT 2IN X 14IN TOP ONE (09:29)
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
--- NOTE | 2023-07-24 12:26 | Operative Report ---
PG Post Operative Report Pre & Post Diagnosis Operation Date: 07/24/23 08:15 Pre-Op Diagnosis: Prostate Cancer Post-Op Diagnosis: Prostate Cancer I identified the patient and participated in the time-out.: Yes Procedure Operation Date: 07/24/23 08:15 Actual Procedures p Robotic Assisted Laparoscopic Radical Retropubic Prostatectomy, with bilateral Pelvic Lymph Node Dissection extensive lysis of adhesions - Braden Worrell, Surgeon Braden Worrell, II, DO Printed Forms Proofreader Ankit WEST Estimated Blood Loss 50 Findings Consistent with Post-Op Diagnosis Significant adhesions of the ascending colon along the pelvic wall and the right lateral wall. Extensive adhesions of the sigmoid colon in the deep pelvis and left pelvic side wall Accessory arteries/vein in the obturator canal. Significant edematous changes in the posterior dissection Specimens Prostate and Seminal Vesicle Left Pelvic Lymph Nodes Right Pelvic Lymph Nodes. Drains 18 Fr Silicon Clay catheter. Anesthesia Type General Complications none Disposition Disposition: Recovery Room Indications Patient with Prostate Cancer. Risk and benefits were discussed at length. Patient elected to undergo robotic assisted laparoscopic Radical Prostatectomy. Description of Procedure The patient was brought to the operative suite and placed under general endotracheal intubation anesthesia in the supine position. The patient was transferred to the dorsal lithotomy position. At this point, the patient prepped and draped in the usual sterile fashion and a timeout was completed. Preoperative antibiotics of Ancef 2 grams had been given. LUIS FELIPE's and SCD's were placed on the patient's lower extremities. A catheter was placed using sterile technique. With the time out completed the patient was placed into Trendelenburg and the skin at the umbilicus was anesthetized. A small incision was made superior to the umbilicus. A Varess Needle was placed and confirmed to be in the abdominal cavity. Water drop test passed. The Abdominal cavity was insufflated to 15 mmHG. The camera port was then placed. A laparoscopic camera was placed into the port and the abdominal cavity inspected. No concerning features were noted. Numerous adhesions were noted off the right lateral and right pelvic wall coming from the ascending colon. The appendix was able to be visualized also adhered somewhat to the wall. Blunt dissection was utilized to free adhesions along the right lateral wall. These were freed without major issue or concern. At this point, the skin was marked for port placement and 8mm working ports were placed. The skin was anesthetized down to fascia and an approx 1cm incision was made to place the 3 x 8mm ports. A 12mm and 5 mm fast food assistant restaurant manager ports were also placed in similar fashion under direct visualization. The patient was transferred into steep Trendelenburg position and the legs lowered. The robot was positioned and docked. The camera was placed and all trocars were positioned under direct visualization. Leona WEST was integral in port placement, camera utilization, and docking procedure. She remained in sterile attire and then proceeded to assist the remainder of the case. At this point, I transitioned to the robotic console. At this point, the sigmoid colon was mobilized superiorly and the pelvis assessed. Once again significant adhesions were freed to allow mobilization. Blunt and sharp dissection was utilized in order to free the sigmoid colon from the pelvic wall. Extensive adhesions were lysed in the pelvis. Approx 30 minutes necessary for blunt and sharp dissection of the adhesions. A small area of tearing occurred with the blunt dissection on a portion of the sigmoid colon. The tissue appeared to be adhesion but had mild bleeding. No obvious mucosal injury. A 3-0 silk suture was used to oversew the area with a figure of eight stitch. The peritoneum in the midline was opened between rectum and bladder and the vas deferens and seminal vesicles exposed. These were dissected with blunt technique. Significant adhesion and edematous changes were noted on the posterior dissection especially around the vas deferens, the seminal vesicles, and further posterior along the posterior portion of the prostate. The vas was clipped and cut and mobilized. Cautery was used to assist dissection avoiding the tissue posteriorly near the rectum. The tissues lateral to the seminal vesicles were clipped with a hemolock and all bleeding controlled. This was taken as inferior as possible from this position. The medial umbilical ligaments were then identified and the peritoneum directly lateral on the right followed by the left was opened. The tissues were bluntly dissected to free the bladder's lateral attachments. This was taken down to the pubic bone and exposed the endopelvic fascia bilaterally. The medial ligaments were cut and the bladder dropped. The tissues was dissected anterior to the prostate. The endopelvic fascia on each side was then opened and the lateral edges of the prostate dissected. The Dorsal venous complex of the prostate was dissected and assessed. A 2-0 PDS suture was used to ligate the vessels. A suspension stitch was used and clipped. Electrocautery was used to cut the anterior attachments, the puboprostatic ligaments, and venous tissues. The right and left pelvic lymph tissue was identified in relation to the iliac vessels. Distal dissection was taken to the Node of Lulú. Inferiorly the obtorator vessels and nerve were identified. Lymphatic tissue within the surround fat tissue was dissected. This packet of tissues were sent for pathologic analysis and lymph node assessment. This was done for each separate side. Hemostatic agent was placed on the exposed vessels. Dissection was somewhat limited bilaterally due to accessory vessels going into the obturator canal region off of the inguinal region. These vessels were found to be large and had to be carefully dissected around. There were also edematous changes most notably on the right side. The clay was manipulated to better visual the bladder neck and dissection was taken using electrocautery. The bladder neck was opened and dissected from the prostate. The UO were identified and dissection taken in a direction to avoid each side. The vas stump and seminal vesicles were exposed and used to assist in traction to dissect. Additional dissection was necessary in order to clear some of the additional adhesions and attachments on the posterior edge. The prostatic pedicles were better exposed. The posterior prostate was dissected. An attempt was made to limit cautery and utilize cold dissection of the lateral posterior prostate to attempt preservation of the neurovascular bundle bilaterally. Hemolock clips were utilized to clip the prostatic pedicle bilaterally. The dissection was taken to the apex of the prostate. The entire posterior dissection was quite edematous. The neurovascular bundles laterally were able to be preserved however there was some limitation to the ability to preserve large portions of tissue on the right side. No obvious tumor invasion however significant adherence of the tissue to the fascial layers as well as to the prostatic capsule. The anterior prostate was released and the urethra exposed. Cold cutting was used to open the anterior portion and expose the catheter. This was removed and the urethra incised. The prostate was further freed and grasped and removed from the field. The entire dissection bed was inspected.Hemostatic agent was placed in the region. No areas of injury or bleeding was noted. Care was taken to examine the perirectal tissues. A probe was placed and no injuries or other issues were observed. A 2-0 Vicryl suture was then used to reapproximate the base of the bladder and the pelvic tissue. The bladder neck and urethra were then approximated with a running barbed suture starting at the 5 o'clock position and moving to the 12 o'clock on each side. This was tied at the anterior portion. A leak test was completed without any evidence of issues. Additional hemostatic agents were then placed in the base of the dissection bed as well as on the lateral edges. No major bleeding was noted. The entire dissection space was inspected one final time. No bleeding or injuries or areas of concern were noted. No tumor or other concerning features were noted. At this point, the robot was undocked and moved away from the patient. The patient was taken out of Trendelenberg. The port sites were all assessed laparoscopically. The endoscopic bag was moved into the midline port. The 10mm port site was closed with the Henrry Benavides device. The other ports were assessed and no issues observed. The umbilical incision was opened further exposing fascia which was then opened in order to removed the prostate in the bag. The prostate was removed. A running 1-0 PDS suture was used to close fascia. The skin at each site was closed with a stapling device. The area was cleaned and bandages placed on each incision. The patient was cleaned and bandaged, aroused from anesthesia, and transferred to the pacu in stable condition having tolerated the procedure well with no complications. I was present and participated in all aspects of the procedure. Ankit WEST was critical in the portions as mentioned above. Will plan to observe postoperatively and monitor. Clay to be remain in place until followup. Will plan to remove catheter in approximately 10 to 14 days in office and discuss pathology I attest to the content of the Intraoperative Record and any orders documented therein. Any exceptions are noted below.
[2023-07-24 13:21] LABS: Hematocrit (blood only) 39.4 % (42.0-52.0); Hemoglobin 13.5 g/dl (14.0-18.0); Mean Corpuscular Hemoglobin 31.5 pg (25.0-34.0); Mean Corpuscular Hgb Conc 34.3 g/dL (32.0-36.0); Mean Corpuscular Volume 92.1 fL (80.0-100.0); Mean Platelet Volume 10.7 fL (9.4-12.4); Platelet Count 230 K/uL (130-400); RDW Coefficient of Variation 12.5 % (11.5-14.5); RDW Standard Deviation 42.1 fL (36.4-46.3); Red Blood Count 4.28 M/uL (4.70-6.10); White Blood Count 22.18 K/ul (4.8-10.8)
[2023-07-24 13:28] LABS: BUN Creatinine Ratio 12.3 (10-20); Calcium 8.3 mg/dl (8.6-10.3); Est GFR (African American) 72.7 ml/min; Est GFR (Non-African American) 62.7 ml/min; Potassium 4.6 mmol/L (3.5-5.1)
[2023-07-24 13:57] LABS: Basophils # (auto) 0.07 K/uL (0.00-0.20); Basophils % (auto) 0.3 %; Immature Granulocytes # (auto) 0.23 K/uL (0.01-0.20); Lymphocytes # (auto) 1.54 K/uL (1.20-3.40); Lymphocytes % (auto) 6.9 %; Monocytes # (auto) 0.26 K/uL (0.11-0.59); Monocytes % (auto) 1.2 %; Neutrophils # (auto) 20.08 K/uL (1.40-6.50); Neutrophils % (auto) 90.6 %
[2023-07-24] MEDS ORDERED: oxyCODONE HCL IR 5 MG TAB (IMMEDIATE RELEASE) PO PRN (14:24)
[2023-07-24] MEDS ORDERED: MoRPHine SULFATE 4 MG/ML 1 ML CARP\\VIAL IV PRN (14:24)
[2023-07-24] MEDS: LACTATED RINGER'S 1,000 ML IV SCH ×2 (14:31→23:12)
--- NOTE | 2023-07-24 14:36 | Anesthesiology Progress Note ---
Date of Service July 24, 2023 Anesthesia Post Procedure Vital Signs Vital Signs: Temp Pulse Pulse Resp BP BP Pulse Ox 07/24/23 14:25 36.5 C 111 H 16 121/63 95 07/24/23 14:00 105 H 12 119/77 99 07/24/23 13:50 101 H 12 136/76 96 07/24/23 13:40 36.4 C L 103 H 13 145/81 H 96 07/24/23 13:30 100 H 12 135/87 98 07/24/23 13:20 101 H 12 123/79 98 07/24/23 13:10 98 H 12 138/75 97 07/24/23 13:00 100 H 12 101/78 97 07/24/23 12:50 102 H 12 126/86 97 07/24/23 12:40 96 H 10 L 148/91 H 99 07/24/23 12:30 36.2 C L 99 H 8 L 139/79 98 07/24/23 07:11 36.5 C 99 H 18 141/86 H 97 O2 Del Method O2 Flow Rate 07/24/23 14:25 Room Air 07/24/23 14:00 Nasal Cannula 2 07/24/23 13:50 Nasal Cannula 2 07/24/23 13:40 Nasal Cannula 2 07/24/23 13:30 Nasal Cannula 2 07/24/23 13:20 Nasal Cannula 2 07/24/23 13:10 Oxymask 6 07/24/23 13:00 Oxymask 6 07/24/23 12:50 Oxymask 6 07/24/23 12:40 Oxymask 6 07/24/23 12:30 Oxymask 8 07/24/23 07:11 Room Air Transfer of Care Handoff Completed per policy Notes Mental Status: alert / awake / arousable Patient Amnestic to Procedure: Yes Nausea / Vomiting: adequately controlled Pain: adequately controlled Airway Patency, RR, SpO2: stable & adequate BP & HR: stable & adequate Hydration State: stable & adequate Anesthetic Complications: no major complications apparent
[2023-07-24] MEDS: ACETAMINOPHEN 325 MG TAB PO SCH ×2 (16:35→21:33)
[2023-07-24] MEDS: ceFAZolin 2000MG 2,000 MG/15 ML SYR IV SCH ×2 (16:36→23:12)
[2023-07-24] MEDS: ONDANSETRON INJ 2 MG/ML 2 ML VIAL IV PRN (17:29)
[2023-07-24] MEDS: oxyCODONE HCL IR 5 MG TAB (IMMEDIATE RELEASE) PO PRN (17:29)
[2023-07-24] MEDS ORDERED: ONDANSETRON INJ 2 MG/ML 2 ML VIAL IV STA (20:45)
[2023-07-24] MEDS: MoRPHine SULFATE 2 MG/ML CARP IV PRN (20:53)
[2023-07-24] MEDS: HEPARIN SOD 5,000 UNIT/0.5 ML VIAL SQ SCH (21:33)
[2023-07-24] MEDS: AMITRIPTYLINE HCL 10 MG TAB PO SCH (21:34)
[2023-07-24] MEDS: GABAPENTIN 300 MG CAP PO SCH (21:34)
[2023-07-24] MEDS: DOCUSATE SODIUM 100 MG CAP PO SCH (21:34)
[2023-07-24] MEDS ORDERED: PROMETHAZINE HCL 6.25 MG in SODIUM CHLORIDE 0.9% 50 ML IV STA (23:32)
--- NOTE | 2023-07-25 01:55 | Communication Note ---
Date of Service: July 25, 2023 I was called by RN multiple times this shift that patient was having postoperative nausea vomiting. Initially patient was treated with antiemetics in the form of Zofran and his diet was changed to n.p.o. status. I presented to the patient's bedside at approximately 11:00 PM. At that time the patient noted he was resting comfortably in bed and did not had any further nausea or vomiting. Shortly after my visit with the patient he again had an episode of emesis. Patient was this time treated with antiemetics in the form of Phenergan. I was called again by RN at approximately 1:40 AM that patient again had episode of emesis. I checked on the patient in his room and since his most recent emesis he notes that he feels improved. He currently does not have any nausea. I did discuss with the patient if he has ever had surgery before and he notes that he has but has not experienced nausea and vomiting like this. Currently he does not report any abdominal pain other than some minor incisional pain. On physical exam the patient's abdomen is minimally distended and overall soft. There is no rebound tenderness or guarding the patient did have appropriate tenderness near his incisions. I suspect the patient's nausea vomiting may be a combination of effects of his surgery/anesthesia and he may also have an element of an ileus. Will continue to treat the patient with antiemetics as he would like to avoid an NG tube. Will also keep the patient n.p.o. with IV fluids running. I will check a KUB at this time as well. KUB was reviewed and looks like patient has some air-filled loops of bowel mostly consistent with an ileus. Will continue treatment with n.p.o. status and IV fluids. Continue antiemetics. If patient's ileus persists an NG tube may be required.
[2023-07-25] MEDS: ONDANSETRON INJ 2 MG/ML 2 ML VIAL IV PRN ×2 (03:31→11:56)
[2023-07-25] MEDS: ACETAMINOPHEN 325 MG TAB PO SCH ×4 (03:35→21:25)
[2023-07-25 06:23] LABS: Basophils # (auto) 0.02 K/uL (0.00-0.20); Basophils % (auto) 0.2 %; Hematocrit (blood only) 26.6 % (42.0-52.0); Hemoglobin 9.4 g/dl (14.0-18.0); Immature Granulocytes # (auto) 0.06 K/uL (0.01-0.20); Immature Granulocytes % (auto) 0.5 %; Lymphocytes # (auto) 2.16 K/uL (1.20-3.40); Lymphocytes % (auto) 16.7 %; Mean Corpuscular Hemoglobin 31.3 pg (25.0-34.0); Mean Corpuscular Hgb Conc 35.3 g/dL (32.0-36.0); Mean Corpuscular Volume 88.7 fL (80.0-100.0); Monocytes # (auto) 1.43 K/uL (0.11-0.59); Monocytes % (auto) 11.1 %; Neutrophils # (auto) 9.27 K/uL (1.40-6.50); Neutrophils % (auto) 71.5 %; Platelet Count 205 K/uL (130-400); RDW Coefficient of Variation 12.3 % (11.5-14.5); RDW Standard Deviation 39.8 fL (36.4-46.3); White Blood Count 12.94 K/ul (4.8-10.8)
[2023-07-25 06:35] LABS: BUN Creatinine Ratio 19.7 (10-20); Calcium 7.9 mg/dl (8.6-10.3); Creatinine Clr Calc Pharmacy 60.2 ml/min; Est GFR (African American) 60.5 ml/min; Est GFR (Non-African American) 52.2 ml/min; Potassium 4.6 mmol/L (3.5-5.1)
[2023-07-25] MEDS: MoRPHine SULFATE 2 MG/ML CARP IV PRN (07:34)
--- NOTE | 2023-07-25 07:39 | XRay Report ---
KUB HISTORY: Nausea. Vomiting. COMPARISON: Abdomen and pelvis CT 05/24/2023. FINDINGS: The bowel gas pattern is unremarkable. There are no dilated loops of small bowel to suggest an obstruction. No renal calculi. No ureteral calculi. No pneumoperitoneum or pneumatosis. There ar e skin efren seen within the abdomen. The visualized lung bases appear clear. There appear to be sc attered areas of subcutaneous gas within the abdominal wall most pronounced on the left. IMPRESSION: 1. Nonspecific bowel gas pattern. 2. Scattered areas of subcutaneous gas within the abdominal wall most pronounced on the left. This is adjacent to the skin efren and could be due to the recent postoperative change. ACT 112: Negative or not required by law. Electronically signed by: Bulmaro Russell M.D. 07/25/2023 7:38 AM
[2023-07-25] MEDS ORDERED: D5W AND 1/2NSS + 20MEQ KCL 20 MEQ/1,000 ML BAG IV SCH (07:45)
--- NOTE | 2023-07-25 07:55 | Urology Progress Note ---
Date of Service July 25, 2023 Assessment & Plan (1) Prostate cancer: Plan: 63yo M POD #1 s/p Robotic Laparoscopic-Assisted Radical Retropubic Prostatectomy with Dr. Worrell. - Afebrile, VS with mild tachycardia - Lab work reviewed- creatinine 1.42, WBC 12.94, Hgb 9.4 - Will repeat BMP and CBC at 1200 - Issues with N/V overnight, but seems to be better this am - KUB showed nonspecific bowel pattern, scattered areas of subcutaneous gas within the abdominal wall most pronounced on the left, related to recent procedure - Abdomen is soft, nondistended on exam - He would like to have sips of water, will try clear liquids this am - Continue IV fluids for now, likely will discontinue later today if tolerating PO intake - Encouraged OOB ambulation - Incisions appropriate - Enciso catheter intact, patent and draining clear urine - Maintain Enciso catheter upon discharge - Will complete post op IV Ancef x 24 hours and then transition to previous course of PO Bactrim until completed - Expected clinical course reviewed, all questions answered - Anticipate discharge to home later today or tomorrow pending clinical course - Plan of care reviewed with discussed with Dr. Worrell Admission and Anticipated Discharge Date Admission Date: July 24, 2023 Subjective Patient seen and examined at bedside this morning, chart reviewed Issues with nausea and vomiting overnight Currently feeling better Denies nausea or vomiting at present Mild discomfort near incisions Enciso patent and draining clear yellow urine He feels thirsty and would like to drink Feels ready to ambulate this morning No fever or chills Review of Systems Constitutional: as per Subjective / HPI Gastrointestinal: as per Subjective / HPI Genitourinary: + as per Subjective / HPI Physical Exam Constitutional: well developed and well nourished; no acute distress Respiratory: normal respiratory effort; no respiratory distress and no labored breathing Gastrointestinal (Abdomen): Inspection/Auscultation: abdomen normal to inspection; abdomen not distended Percussion/Palpation: abdomen soft mild tenderness near incisions Musculoskeletal: Head/Neck/Chest: normocephalic Skin: Incisions C/D/I, well approximated with efren Neurologic: moves all extremities and awake Psychiatric: Orientation: alert and oriented x 3 Genitourinary: Enciso patent and draining clear yellow urine Results & Data Vital Signs (Past 12 Hours) Vital Signs Temp Pulse Resp BP Pulse Ox O2 Del Method 07/25/23 07:23 36.8 C 109 H 18 161/82 H 98 Room Air 07/25/23 03:30 37.2 C 116 H 18 127/83 98 Room Air 07/24/23 23:14 36.9 C 115 H 17 116/66 96 Room Air 07/24/23 21:55 92 H 07/24/23 21:17 Room Air 07/24/23 20:25 37.1 C 18 151/85 H 98 Room Air PG Care Time/CCT Total # of Minutes Spent Total Time Spent with Patient: Total time spent is greater than 50% in coordination of care (as documented) at patient's floor/unit and/or counseling patient: Coding Level of Care Code None Diagnoses Prostate cancer C61
[2023-07-25] MEDS: DOCUSATE SODIUM 100 MG CAP PO SCH ×2 (08:49→21:25)
[2023-07-25] MEDS: GABAPENTIN 300 MG CAP PO SCH ×3 (08:49→21:25)
[2023-07-25] MEDS: HEPARIN SOD 5,000 UNIT/0.5 ML VIAL SQ SCH ×2 (08:50→21:25)
[2023-07-25] MEDS: MULTIVITAMIN TAB PO SCH (08:51)
[2023-07-25] MEDS ORDERED: hydroCHLOROthiazide 25 MG TAB PO SCH (09:00)
[2023-07-25] MEDS: oxyCODONE HCL IR 5 MG TAB (IMMEDIATE RELEASE) PO PRN (10:52)
[2023-07-25 12:29] LABS: Basophils # (auto) 0.02 K/uL (0.00-0.20); Basophils % (auto) 0.2 %; Hematocrit (blood only) 24.4 % (42.0-52.0); Hemoglobin 8.7 g/dl (14.0-18.0); Immature Granulocytes # (auto) 0.08 K/uL (0.01-0.20); Immature Granulocytes % (auto) 0.6 %; Lymphocytes # (auto) 2.42 K/uL (1.20-3.40); Lymphocytes % (auto) 19.3 %; Mean Corpuscular Hemoglobin 31.8 pg (25.0-34.0); Mean Corpuscular Hgb Conc 35.7 g/dL (32.0-36.0); Mean Corpuscular Volume 89.1 fL (80.0-100.0); Mean Platelet Volume 10.7 fL (9.4-12.4); Monocytes # (auto) 1.45 K/uL (0.11-0.59); Monocytes % (auto) 11.6 %; Neutrophils # (auto) 8.55 K/uL (1.40-6.50); Neutrophils % (auto) 68.3 %; Platelet Count 186 K/uL (130-400); RDW Coefficient of Variation 12.6 % (11.5-14.5); RDW Standard Deviation 40.7 fL (36.4-46.3); Red Blood Count 2.74 M/uL (4.70-6.10); White Blood Count 12.52 K/ul (4.8-10.8)
[2023-07-25 12:55] LABS: Calcium 7.8 mg/dl (8.6-10.3); Potassium 4.1 mmol/L (3.5-5.1)
[2023-07-25 13:01] LABS: BUN Creatinine Ratio 18.4 (10-20); Creatinine Clr Calc Pharmacy 60.6 ml/min; Est GFR (Non-African American) 52.6 ml/min
[2023-07-25] MEDS: ceFAZolin 2000MG 2,000 MG/15 ML SYR IV SCH ×2 (13:15→21:24)
--- NOTE | 2023-07-25 15:25 | Hospitalist Consultation ---
Date of Consultation July 25, 2023 Assessment & Plan (1) S/P prostatectomy: (2) Primary prostate adenocarcinoma: POD #[address] Worrell for treatment of primary prostate adenocarcinoma PET scan 07/11/2023 without signs of metastatic disease Management as per urology On IV cefazolin for preoperative urine culture growing tariq quinolone resistant E. coli (3) RAYRAY (acute kidney injury): Creatinine 1.4 (baseline ~0.7) Likely prerenal in the setting of dehydration from nausea and vomiting overnight, anemia, HCTZ Holding HCTZ, will get additional 1 L IVF Monitor renal functions (4) Hypertension: BP initially elevated today however now improved to 116/72 Pain likely contributing Placing HCTZ on hold due to mild RAYRAY, monitor BP closely, provide additional or alternative agents as needed (5) Anemia: Preop Hgb 14.0 --> 8.7 Postoperative acute blood loss anemia Currently no indication for transfusion Monitor H&H, transfuse blood products PRN (6) Postoperative nausea and vomiting: Per report, patient had significant nausea and vomiting overnight, now improved KUB XR unremarkable Currently on clear liquids, advancing to full liquids for dinner (7) Tachycardia: Mild tachycardia noted throughout stay, improved this afternoon Pain/dehydration likely contributing (8) Alcohol use disorder: Patient reports drinking 2 beers per night, last drink on 07/22 per patient No signs of alcohol withdrawal DVT PROPHYLAXIS SQ heparin as per urology Patient seen in collaboration with Dr. Preciado. Thank you for this consultation. We will follow the patient with you during their hospital stay. You can reach a [facility] of the [facility] via the [facility] role in [place] [employer]. Supervising Physician Co-Signing Physician Notes I have seen and examined the patient and have discussed the case with the provider above. I agree with the assessment and plan as stated. DO Ozzy History of Present Illness Reason for Consultation: Medical management Requesting Physician: Dr. Worrell Attending Physician: Braden Worrell, II, DO History of Present Illness 63-year-old male with PMH HTN, chronic back pain, primary prostate adenocarcinoma, and other problems listed below who is POD#[address] Worrell. Overnight, patient reports he had severe nausea and several episodes of vomiting. This has since improved. Patient is tolerating clear liquids and is scheduled to be advanced to full liquids for dinner. Patient also reports having a moderate amount of pain postoperatively, however currently rating his pain a #3/10. No chest pain or shortness of breath. Denies lightheadedness and dizziness. No abdominal pain. Enciso catheter is in place draining concentrated appearing urine. Allergies Allergy/AdvReac Type Severity Reaction Status Date / Time bee pollen Allergy Intermediate itchy Verified 07/24/23 07:02 pollen extracts Allergy Intermediate Hives Verified 07/24/23 07:02 Home Medications Medication Instructions Recorded Confirmed Type amitriptyline 10 mg tablet 30 mg PO HS 04/07/19 07/25/23 History hydrochlorothiazide 25 mg tablet 25 mg PO QAM 04/07/19 07/25/23 History gabapentin 300 mg capsule 300 mg PO TID 12/16/20 07/25/23 History (Neurontin) multivitamin 1 tab PO QAM 12/16/20 07/25/23 History tadalafil 10 mg tablet 10 mg PO DAILY PRN sexual activity 04/25/23 07/25/23 Rx #30 tabs omega-3 fatty acids 1,000 mg 1,000 mg PO Q3D 05/24/23 07/25/23 History capsule hydrocortisone 2.5 % topical cream 1 applic EXT BID PRN hemorrhoids 05/28/23 07/25/23 Rx with perineal applicator #30 grams (Proctosol HC) docusate sodium 100 mg capsule 100 mg PO BID #60 caps 07/15/23 07/25/23 Rx (Colace) tamsulosin 0.4 mg capsule 0.4 mg PO QAM 07/15/23 07/25/23 History sulfamethoxazole 800 1 tab PO BID #20 tabs 07/18/23 07/25/23 Rx mg-trimethoprim 160 mg tablet (Bactrim DS) ondansetron 4 mg disintegrating 4 mg PO Q8H PRN nausea and 07/25/23 Rx tablet vomiting #10 tabs oxycodone-acetaminophen 5 mg-325 1 tab PO TID PRN pain #10 tabs 07/25/23 Rx mg tablet (Percocet) Patient History Medical History (Updated 07/25/23 @ 16:36 by BRETT Larios) Primary prostate adenocarcinoma History of degenerative disc disease Diverticulosis Constipation History of recent hospitalization 05/2023 [facility] - sepsis 2/2 prostatitis Prostate cancer dx'd 05/2023. HLD (hyperlipidemia) Insomnia Chronic back pain Orchalgia Hypertension Surgical History (Updated 07/25/23 @ 15:09 by BRETT Larios) History of colonoscopy History of prostate biopsy H/O inguinal hernia repair Hx of tonsillectomy History of lumbar laminectomy Family History Father Diabetes Heart disease Hypertension Other No family history of adverse response to anesthesia Social History Smoking Status: Former smoker Tobacco Type: Cigarettes Smoking End Date: 24 years ago; Second Hand Exposure: Yes (as a child); Do You Dip or Chew Tobacco: No; Tobacco Cessation Education Requested by Patient: No Hx Alcohol Use: Yes Alcohol type: beer Alcohol Intake Frequency Comment: 1-2 nightly Hx Substance Use: Yes Non-Prescribed Medications: Marijuana Last Used Substance: Days (ago) Preferred Language: Vietnamese Communication Ability: Effective Hearing Ability: Normal Php Programmer Required: No Beliefs That Will Affect Care: None marital status: Current Living Situation: Spouse current occupational status: employed Feels Safe at Home: Yes Safety Concerns: Feels Safe At This Time Assistive Devices: None Physical Exam Constitutional: WD/WN, vitals as above no acute distress Eyes: PERRL, conjunctivae normal, anicteric sclerae ENMT: external ear and nose normal, oropharynx normal Respiratory: normal respiratory effort, lungs clear to auscultation Cardiovascular: Rate/Rhythm: regular rhythm and + tachycardic (Heart rate in the low 100s) Vessels: normal peripheral pulses Extremities: no edema Gastrointestinal (Abdomen): normal bowel sounds, soft, nontender, no hepatosplenomegaly Musculoskeletal: no cyanosis or clubbing, extremities motor strength 5/5 Skin: no rashes, warm and dry Neurologic: PERRL, EOMI, accommodation nl, no face palsy, no dysarthria Psychiatric: A+Ox3, euthymic affect Genitourinary: Enciso in place draining concentrated urine Results & Data Results & Data Vital Signs (Past 12 Hours) Vital Signs Temp Pulse Resp BP Pulse Ox O2 Del Method 07/25/23 12:14 156/89 H 07/25/23 11:28 36.7 C 111 H 18 170/91 H 98 Room Air 07/25/23 07:23 36.8 C 109 H 18 161/82 H 98 Room Air 07/25/23 03:30 37.2 C 116 H 18 127/83 98 Room Air Laboratory Results Short CBC 07/25/23 07/25/23 Range/Units 05:39 12:07 WBC 12.94 H 12.52 H (4.8-10.8) K/ul Hgb 9.4 L D 8.7 L (14.0-18.0) g/dl Hct 26.6 L 24.4 L (42.0-52.0) % Plt Count 205 186 (130-400) K/uL BMP 07/25/23 07/25/23 05:39 12:07 Sodium 135 L 135 L Potassium 4.6 4.1 Chloride 102 101 Carbon Dioxide 26 28 BUN 28 H 26 H Creatinine 1.42 H 1.41 H Glucose 138 H 146 H Calcium 7.9 L 7.8 L Diagnostic Findings KUB X-Ray 07/25/23 01:50 KUB HISTORY: Nausea. Vomiting. COMPARISON: Abdomen and pelvis CT 05/24/2023. FINDINGS: The bowel gas pattern is unremarkable. There are no dilated loops of small bowel to suggest an obstruction. No renal calculi. No ureteral calculi. No pneumoperitoneum or pneumatosis. There are skin efren seen within the abdomen. The visualized lung bases appear clear. There appear to be scattered areas of subcutaneous gas within the abdominal wall most pronounced on the left. IMPRESSION: 1. Nonspecific bowel gas pattern. 2. Scattered areas of subcutaneous gas within the abdominal wall most pronounced on the left. This is adjacent to the skin efren and could be due to the recent postoperative change. ACT 112: Negative or not required by law. Electronically signed by: Bulmaro Russell M.D. 07/25/2023 7:38 AM
[2023-07-25] MEDS ORDERED: SODIUM CHLORIDE 0.9% 1,000 ML IV SCH (15:30)
[2023-07-25] MEDS: AMITRIPTYLINE HCL 10 MG TAB PO SCH (21:25)
[2023-07-26] MEDS: ACETAMINOPHEN 325 MG TAB PO SCH ×2 (04:50→09:05)
[2023-07-26] MEDS: ceFAZolin 2000MG 2,000 MG/15 ML SYR IV SCH (04:50)
[2023-07-26 06:14] LABS: Basophils # (auto) 0.02 K/uL (0.00-0.20); Basophils % (auto) 0.2 %; Hematocrit (blood only) 21.6 % (42.0-52.0); Hemoglobin 7.3 g/dl (14.0-18.0); Immature Granulocytes # (auto) 0.05 K/uL (0.01-0.20); Immature Granulocytes % (auto) 0.4 %; Lymphocytes # (auto) 2.71 K/uL (1.20-3.40); Lymphocytes % (auto) 22.5 %; Mean Corpuscular Hemoglobin 31.3 pg (25.0-34.0); Mean Corpuscular Hgb Conc 33.8 g/dL (32.0-36.0); Mean Corpuscular Volume 92.7 fL (80.0-100.0); Mean Platelet Volume 10.8 fL (9.4-12.4); Monocytes % (auto) 8.3 %; Neutrophils # (auto) 8.25 K/uL (1.40-6.50); Neutrophils % (auto) 68.6 %; Platelet Count 144 K/uL (130-400); RDW Coefficient of Variation 12.7 % (11.5-14.5); RDW Standard Deviation 42.3 fL (36.4-46.3); Red Blood Count 2.33 M/uL (4.70-6.10); White Blood Count 12.03 K/ul (4.8-10.8)
[2023-07-26 06:18] LABS: BUN Creatinine Ratio 15.2 (10-20); Calcium 7.7 mg/dl (8.6-10.3); Creatinine Clr Calc Pharmacy 81.4 ml/min; Est GFR (African American) 87.1 ml/min; Est GFR (Non-African American) 75.2 ml/min; Potassium 3.9 mmol/L (3.5-5.1)
[2023-07-26 06:48] LABS: Microcytosis Present
[2023-07-26] MEDS: oxyCODONE HCL IR 5 MG TAB (IMMEDIATE RELEASE) PO PRN ×2 (07:34→11:39)
--- NOTE | 2023-07-26 08:01 | Urology Progress Note ---
Date of Service July 26, 2023 Assessment & Plan (1) S/P prostatectomy: Plan: Recovering appropriately s/p radical prostatectomy. He is ambulating, tolerating a diet, pain is well-controlled. He is meeting goals for discharge and would like to go home today. Decrease in hemoglobin is likely related to fluid shifts, low suspicion for any active bleeding at this point as he is not having any abnormal pain. (2) Prostate cancer: (3) RAYRAY (acute kidney injury): Plan: Creatinine has normalized. Admission and Anticipated Discharge Date Admission Date: July 24, 2023 Subjective Feeling well this morning, slight headache Tolerating a diet with no nausea or vomiting He is now passing flatus. Has been up and ambulating without any issues Still having some abdominal tenderness at the incisions, although pain well- controlled on current regimen. WBC 12.03, hemoglobin 7.3. Creatinine improved to 1.05 Physical Exam Physical Exam: Well-appearing, NAD, resting comfortably in bed Gastrointestinal (Abdomen): Abdomen soft, appropriately tender to palpation Genitourinary: Enciso catheter in place, draining clear yellow urine Results & Data Vital Signs (Past 12 Hours) Vital Signs Temp Pulse Resp BP Pulse Ox O2 Del Method 07/26/23 07:23 36.8 C 88 16 142/79 H 99 Room Air 07/25/23 21:34 Room Air 07/25/23 21:23 36.8 C 92 H 18 123/72 98 Room Air PG Care Time/CCT Total # of Minutes Spent Total Time Spent with Patient: Total time spent is greater than 50% in coordination of care (as documented) at patient's floor/unit and/or counseling patient: Coding Level of Care Code None Diagnoses S/P prostatectomy Z90.79 Prostate cancer C61 RAYRAY (acute kidney injury) N17.9
--- NOTE | 2023-07-26 08:07 | Discharge Summary ---
Date of Service July 26, 2023 Admission HPI Per Admitting Provider This is a 63-year-old male followed by urology for prostate cancer. He underwent robot-assisted radical prostatectomy on 07/24/2023 and was admitted in good condition postoperatively. Admission Exam Per Admitting Provider General: Alert in no acute distress. HEENT: Inspection normal Psychologic: Normal affect. Respiratory: Nonlabored. No use of accessory muscles. Skin: [place] and Dry. No rashes or visible lesions. Abdomen: Soft, nontender Principal Diagnosis Prostate cancer Discharge Exam Well-appearing, NAD Gastrointestinal (Abdomen) Soft, nondistended, appropriately tender to palpation Genitourinary Enciso catheter in place draining clear yellow urine Discharge Data Allergies Allergy/AdvReac Type Severity Reaction Status Date / Time bee pollen Allergy Intermediate itchy Verified 07/24/23 07:02 pollen extracts Allergy Intermediate Hives Verified 07/24/23 07:02 Consultations 07/25/23 13:23 Consult Hospitalist Routine Procedures Performed Operation Date: 07/24/23 08:15 Actual Procedures p Robotic Assisted Laparoscopic Radical Retropubic Prostatectomy, with bilateral Pelvic Lymph Node Dissection(Not Applicable) - Braden Worrell DO Hospital Course (1) Prostate cancer: He underwent radical prostatectomy on 07/24/2023. By 07/26, he was tolerating a diet, ambulating and pain was well-controlled. He was discharged home in good condition. (2) RAYRAY (acute kidney injury): Creatinine was elevated on 07/25, however returned to normal range on 07/26. (3) Postoperative nausea and vomiting: On the evening after surgery he had some postoperative nausea and vomiting. This had improved by 07/26 and he was tolerating a diet prior to discharge. (4) Anemia: Hemoglobin decreased postoperatively. This was thought to largely be related to fluid shifts and resuscitation with IV fluids. He was not having any abdominal pain to suggest ongoing bleeding and remained hemodynamically stable prior to discharge. Total Time Total Time Spent Total Time Spent (In Minutes): 15 Discharge Plan Discharge Items Patient Disposition: Home - Self-Care Reason For Visit: Prostate Cancer Discharge Diagnosis: Prostate Cancer Activity: Per Instructions section Lifting: No more than 10 pounds Bathing Comment: Okay to shower, no tub bath or soaking Sexual Activity: Wait until after follow-up appointment Exercise/Sports: Wait until after follow-up appointment Driving/Machine Use: No driving while taking prescription pain medication Non-emergency contact: Surgeon and Urologist Call non-emergency contact if: your pain is not controlled, you have a fever, your temperature is above 101, your wound has increased redness, your wound has increased drainage and your wound pain has increased Follow-up/Referrals: Jas Lyle MD [Primary Care Provider] - Diet: Regular Addtl Attending Provider Instructions: You had a Robotic Prostatectomy. Please take all medications as prescribed and keep all follow-ups as scheduled. Please call our office at [phone] to schedule your follow-up appointments for your catheter and staple removal and post operative appointment. Call with any questions or concerns. We are happy to assist you. Complete your antibiotic at home as previously prescribed until completed. For pain, you can take Tylenol or ibuprofen. If you were prescribed a narcotic, take this according to instructions on the label Would recommend a bowel regimen as you recover from surgery. You can start with Colace/docusate, which is a stool softener. You can also use MiraLAX or glycerin suppositories if needed. Activity: We recommend having someone with you for the first few days after surgery to help care for you. For the first 2 weeks after surgery, we would like you to get up and walk around your house. However, we recommend limit physical activity that would increase your heart rate. This will allow your body to rest and heal. Take naps if you feel tired. Don't lift anything heavier than 10 pounds, mow the law or ride a bicycle until your follow-up appointment. Please avoid long car rides. Home Care: Unless directed otherwise, drink 6 to 8 glasses of water a day (enough to keep your urine light colored). This will also help keep a healthy flow of urine. We recommend using a stool softener for the first two weeks to avoid constipation. Enciso Catheter or Suprapubic Catheter care: Keep the catheter well secured with either a leg back or leg strap with large bag. Empty your bag when it's about half full. You may notice some blood in the bag. This is normal after surgery and while the catheter is in place. Use mild soap (such as Dove or Dial) and water to wash the catheter and the head of your penis daily, or more frequently if needed. Return to your normal diet, we encourage good protein intake to promote healing. You may shower as normal. Please avoid tub baths or soaking until catheter removed and incisions well healed. Wearing sweat pants while you have the catheter is recommended, they will be more comfortable. Follow-up Your follow up appointments for having your catheter removed, and follow up with your physician should already be scheduled. If you have any questions regarding this, please contact our office. Your final pathology report will be discussed at your physician follow-up appointment. Call [facility]rology at [phone] right away if you have any of the following: Chest pain or trouble breathing (call 911 or go to the hospital) Fever of 101F or higher, uncontrolled vomiting Heavy bleeding, clots, or bright red blood from the catheter Catheter that falls out or stops draining Foul-smelling discharge from your catheter Redness, swelling, warmth, or increased pain at your incision site Drainage, pus, or bleeding from your incision Pending Studies at Discharge: Yes Studies:: Pathology Stand-Alone Forms: My [facility], Smoking Cessation Medications and DC Order Prescriptions: New oxycodone-acetaminophen [Percocet] 5-325 mg tablet 1 tab PO TID PRN (Reason: pain) Qty: 10 0RF Rx Instructions: post-op pain ondansetron 4 mg tablet,disintegrating 4 mg PO Q8H PRN (Reason: nausea and vomiting) Qty: 10 0RF Continued sulfamethoxazole-trimethoprim [Bactrim DS] 800-160 mg tablet 1 tab PO BID Qty: 20 0RF amitriptyline 10 mg tablet 30 mg PO HS hydrochlorothiazide 25 mg tablet 25 mg PO QAM docusate sodium [Colace] 100 mg capsule 100 mg PO BID Qty: 60 0RF Patient Comments: post op gabapentin [Neurontin] 300 mg capsule 300 mg PO TID multivitamin Tablet 1 tab PO QAM omega-3 fatty acids 1,000 mg Capsule 1,000 mg PO Q3D hydrocortisone [Proctosol HC] 2.5 % Cream With Perineal Applicator 1 applic EXT BID PRN (Reason: hemorrhoids) Qty: 30 0RF Held tadalafil 10 mg tablet 10 mg PO DAILY PRN (Reason: sexual activity) Qty: 30 0RF Hold Instructions: Resume on 08/29/23. Hold until discussed at follow-up. Rx Instructions: administer approximately 30min before sexual activity; do not exceed 20 mg in 24 hours. Discontinued tamsulosin 0.4 mg capsule 0.4 mg PO QAM Discharge Orders: Discharge Order (Routine); Ordered 07/26/23 Ordered By: Ruben Castillo Admission Data Admit Date/Time: 07/24/23 12:18 Attending Provider: Braden Worrell Admit Provider: Braden Worrell Primary Care Provider: Jas Lyle Other Providers: Karen Araya; Arlette Benson I.; Nicolette Byers; Molly Vazquez; Bernadette Hodges; Minoo Yuen; Rosette Chance; Valentino An; Masoud Piña; Maurizio Morataya; Jillian Preciado; John Morales; Vivian Mendez; Karissa Yee; Gill Luke; William Palacios; Hope Leavitt; Sherri Goodman; Jennie Powers I.; Jackson Gay; Kim Muro; Mulugeta Rodriguez; Agus Alves; Brennan Quintanilla; Sree Juarez; Evelyn Marie; Franchesca Cantu Coding Level of Care Code 86548 IN/OBS DISCH 30 MIN/LESS Diagnoses Prostate cancer C61 RAYRAY (acute kidney injury) N17.9 Postoperative nausea and vomiting R11.2; Z98.890 Anemia D64.9
[2023-07-26] MEDS: DOCUSATE SODIUM 100 MG CAP PO SCH (09:03)
[2023-07-26] MEDS: MULTIVITAMIN TAB PO SCH (09:04)
[2023-07-26] MEDS: HEPARIN SOD 5,000 UNIT/0.5 ML VIAL SQ SCH (09:04)
[2023-07-26] MEDS: GABAPENTIN 300 MG CAP PO SCH (09:05)
== END 2023-07-26 12:02 | disposition home or self-care (01) ==
LOC: ASU 06:44 → 3E 12:18 → INTOOBSV 12:18